=== PATIENT | male | born 1950 | race Caucasian/White ===

== ENCOUNTER 2022-11-27 09:02 | Outpatient (OUT) | payer OTHER, SELFPAY ==
[2022-11-27 10:35] LABS: Prostate Specific Antigen Scrn 1.44 ng/mL (<=4.00)
== END 2022-11-27 09:03 | disposition home or self-care (01) ==
LOC: LAB 09:07
PROVIDERS: PCP Internal Medicine; Visit Provider Internal Medicine
DX: Z12.5 Encounter for screening for malignant neoplasm of prostate (principal)
CPT/HCPCS: 36415; G0103

== ENCOUNTER 2022-11-27 09:10 | Outpatient (OUT) | payer OTHER, SELFPAY ==
[2022-11-27 09:34] LABS: Basophils Percent Auto 0.4 % (0.2-2.0); Eosinophils Absolute Auto 0.2 10^3/uL (0.0-0.7); Eosinophils Percent Auto 3.4 % (0.9-7.0); Hematocrit 40.8 % (42.0-54.0); Hemoglobin 13.8 g/dL (14.0-18.0); Immature Granulocytes Abs Auto 0.01 10^3/uL (0.00-0.03); Immature Granulocytes Pct Auto 0.2 % (0.0-0.5); Lymphocytes Absolute Auto 1.9 10^3/uL (1.2-3.8); Lymphocytes Percent Auto 33.2 % (20.5-60.0); Mean Corpuscular HGB Conc 33.8 g/dL (29.9-35.2); Mean Corpuscular Hemoglobin 30.9 pg (25.9-34.0); Mean Corpuscular Volume 91.5 fL (80.0-94.0); Mean Platelet Volume 10.3 fL (9.5-13.5); Monocytes Absolute Auto 0.6 10^3/uL (0.3-0.8); Monocytes Percent Auto 9.8 % (1.7-12.0); Platelet Count 150 10^3/uL (150-450); Red Blood Count 4.46 10^6/uL (4.70-6.10); Red Cell Distribution Width 12.4 % (11.0-15.0); White Blood Count 5.6 10^3/uL (4.0-11.0)
[2022-11-27 10:22] LABS: Alanine Aminotransferase 36 U/L (16-63); Anion Gap 12.1; Aspartate Amino Transferase 29 U/L (15-37); BUN Creatinine Ratio 20.2; Calcium 9.3 mg/dL (8.5-10.1); Chloride 106 mmol/L (98-107); Chol HDL Ratio 2.6; Cholesterol 119 mg/dL (<=200); Estimated GFR (African America >60 (>=60); Estimated GFR (Non-African Ame 55 (>=60); Glucose 111 mg/dL (74-106); HDL Cholesterol 46 mg/dL (40-60); LDL Cholesterol Calculated 58.6 mg/dL; Potassium 4.1 mmol/L (3.5-5.1); Sodium 142 mmol/L (136-145); Triglycerides 72 mg/dL (<=150); VLDL CHOLESTEROL 14.4 mg/dL
== END 2022-11-27 09:11 | disposition home or self-care (01) ==
LOC: LAB 09:11
PROVIDERS: PCP Internal Medicine; Visit Provider Internal Medicine Cardiovascular Disease
DX: Z12.5 Encounter for screening for malignant neoplasm of prostate (principal); E78.5 Hyperlipidemia, unspecified; Z98.61 Coronary angioplasty status; I25.10 Atherosclerotic heart disease of native coronary artery without angina pectoris; I42.9 Cardiomyopathy, unspecified
CPT/HCPCS: 36415; 80048; 80061; 84450; 84460; 85025; G0103

== ENCOUNTER 2023-12-01 09:06 | Outpatient (OUT) | payer OTHER, SELFPAY ==
[2023-12-01 09:32] LABS: Basophils Percent Auto 0.4 % (0.2-2.0); Eosinophils Absolute Auto 0.3 10^3/uL (0.0-0.7); Eosinophils Percent Auto 3.4 % (0.9-7.0); Hematocrit 41.6 % (42.0-54.0); Hemoglobin 14.3 g/dL (14.0-18.0); Immature Granulocytes Abs Auto 0.02 10^3/uL (0.00-0.03); Immature Granulocytes Pct Auto 0.2 % (0.0-0.5); Lymphocytes Percent Auto 24.8 % (20.5-60.0); Mean Corpuscular HGB Conc 34.4 g/dL (29.9-35.2); Mean Corpuscular Hemoglobin 31.9 pg (25.9-34.0); Mean Corpuscular Volume 92.9 fL (80.0-94.0); Mean Platelet Volume 10.5 fL (9.5-13.5); Monocytes Absolute Auto 0.7 10^3/uL (0.3-0.8); Monocytes Percent Auto 8.3 % (1.7-12.0); Neutrophils Absolute Auto 5.1 10^3/uL (1.4-6.5); Neutrophils Percent Auto 62.9 % (43.0-75.0); Platelet Count 150 10^3/uL (150-450); Red Blood Count 4.48 10^6/uL (4.70-6.10)
[2023-12-01 10:12] LABS: Alanine Aminotransferase 33 U/L (16-63); Albumin Globulin Ratio 1.4; Alkaline Phosphatase 81 U/L (46-116); Anion Gap 13.2; Aspartate Amino Transferase 27 U/L (15-37); BUN Creatinine Ratio 17.6; Bilirubin Total 1.1 mg/dL (0.2-1.0); Calcium 9.3 mg/dL (8.5-10.1); Carbon Dioxide 28.8 mmol/L (21.0-32.0); Chloride 105 mmol/L (98-107); Chol HDL Ratio 2.4; Cholesterol 119 mg/dL (<=200); Estimated GFR (African America >60 (>=60); Estimated GFR (Non-African Ame 57 (>=60); Globulin 2.9 g/dL; Glucose 112 mg/dL (74-106); HDL Cholesterol 49 mg/dL (40-60); LDL Cholesterol Calculated 56.2 mg/dL; Sodium 143 mmol/L (136-145); Total Protein 6.9 g/dL (6.4-8.2); Triglycerides 69 mg/dL (<=150); VLDL CHOLESTEROL 13.8 mg/dL
[2023-12-01 10:17] LABS: Prostate Specific Antigen Scrn 1.69 ng/mL (<=4.00)
== END 2023-12-01 09:07 | disposition home or self-care (01) ==
LOC: LAB 09:09
PROVIDERS: PCP Internal Medicine; Visit Provider Internal Medicine
DX: Z00.00 Encounter for general adult medical examination without abnormal findings (principal); I10 Essential (primary) hypertension; I25.10 Atherosclerotic heart disease of native coronary artery without angina pectoris; Z12.5 Encounter for screening for malignant neoplasm of prostate; E78.00 Pure hypercholesterolemia, unspecified
CPT/HCPCS: 36415; 80053; 80061; 85025; G0103

== ENCOUNTER 2024-12-01 09:03 | Outpatient (OUT) | payer OTHER, SELFPAY ==
--- OUTSIDE RECORDS SUMMARY | 2024-12-01 09:10 | XMS_ITS | Encounter Summary ---
Author Organization [facility] Address [address] [place] [address] Phone Care Team Providers Care Evaporator Operator Molasses Name Role Phone Kenny Fitzpatrick DO Primary Care Provider [phone] Kenny Fitzpatrick DO Primary Care Provider [phone] Encounter Details Date Type Department Care Team (Late st Contact Info) Description 04/10/2019 Orders Only [facility] [address] [place] [address] Conversion, Onbase Social History Tobacco Use Types Packs/Day Years Used Date Smoking Tobacco: Never Assessed Sex and Gender Information Value Date Recorded Sex Assigned at Not on file Legal Sex Male 9:57 AM EST Gender Identity Not on file Sexual Orientation Not on file documented as of this encounter Plan of Treatment Upcoming Encounters Date Type Department Care Team (Late st Contact Info) Description 11/01/2025 8:30 AM EDT Office Visit [facility] [address] [address] Lorenzo Monk MD 703 [facility] 2, [address] [place], [place] [id number] Scheduled Orders Name Type Priority Associated Diagnoses Orde r Schedule OUTSIDE LAB SCAN Lab Ordered: 04/10/2019 documented as of this encounter Visit Diagnoses Not on filedocumented in this encounter Care Teams Evaporator Operator Molasses Relationship Specialty Start Date End Date Kenny Fitzpatrick DO PCP - General 05/05/99 10/13/24 Kenny Fitzpatrick DO [facility] [place] [address] PCP - General Internal Medicine 10/14/24 documented as of this encounter
--- OUTSIDE RECORDS SUMMARY | 2024-12-01 09:10 | XMS_ITS | Clinical Summary ---
Author Organization [facility] Address [address] [place] [address] Phone Care Team Providers Care International Marketing Coordinator Name Role Phone Kenny Fitzpatrick DO Primary Care Provider Allergies No known active allergies Medications omega 3-zng-zso-fish oil (Fish OiL) 300-1,000 mg capsule,delayed release(DR/EC) Take 1 capsule by mouth once daily. Active multivit-min/ferrou s fumarate (MULTI VITAMIN ORAL) Take 1 tablet by mouth once daily. Active aspirin 81 mg EC tabletIndications:A therosclerotic heart disease of [place] coronary artery without angina pectoris Take 1 tablet (81 mg) by mouth once daily. as directed 90 tablet 3 4 Active losartan (Cozaar) 100 mg tabletIndications:A therosclerosis of coronary artery, unspecified vessel or lesion type, unspecified whether angina present, unspecified whether [place] or transplanted heart,Cardiomyopath y, unspecified type (Multi) Take 1 tablet (100 mg) by mouth once daily. 90 tablet 3 4 Active hydroCHLOROthiazide (HYDRODiuril) 25 mg tabletIndications:C ardiomyopathy, unspecified type (Multi),White coat syndrome with hypertension Take 1 tablet (25 mg) by mouth once daily. 90 tablet 3 4 Active carvedilol (Coreg) 12.5 mg tabletIndications:E ssential (primary) hypertension,Cardio myopathy, unspecified type (Multi) Take 1 tablet (12.5 mg) by mouth 2 times a day. 180 tablet 3 5 09/25/19 26 Active atorvastatin (Lipitor) 80 mg tabletIndications:H yperlipidemia, unspecified hyperlipidemia type Take 1 tablet (80 mg) by mouth once daily at bedtime. 90 tablet 3 5 09/25/19 Active amLODIPine (Norvasc) 2.5 mg tabletIndications:E ssential (primary) hypertension Take 1 tablet (2.5 mg) by mouth once daily. 90 tablet 3 5 09/25/19 Active nitroglycerin (Nitrostat) 0.4 mg SL tabletIndications:A therosclerosis of coronary artery, unspecified vessel or lesion type, unspecified whether angina present, unspecified whether [place] or transplanted heart Place 1 tablet (0.4 mg) under the tongue every 5 minutes if needed for chest pain ([facility] or call 911 after third dose.). 100 tablet 1 Active Active Problems Problem Noted Date Diagnosed Date Never smoked tobacco 10/28/2024 BMI 24.0-24.9, adult 10/29/2023 Atherosclerosis of coronary artery 07/14/2023 Cardiomyopathy 07/14/2023 Hyperlipidemia 07/14/2023 Status post coronary angioplasty 07/14/2023 White coat syndrome with hypertension 07/14/2023 Encounters Date Type Department Care Team Description 10/28/2024 8:40 AM EDT Office Visit [address] [address] Lorenzo Monk MD Atherosclerosis of coronary artery, unspecified vessel or lesion type, unspecified whether angina present, unspecified whether [place] or transplanted heart (Primary Dx); Status post coronary angioplasty; White coat syndrome with hypertension; Left ventricular systolic dysfunction; Mixed hyperlipidemia; BMI 24.0-24.9, adult; Never smoked tobacco 10/28/2024 Travel 09/24/[address] [address] Lorenzo Monk MD Essential (primary) hypertension; Hyperlipidemia, unspecified hyperlipidemia type; White coat syndrome with hypertension; Cardiomyopathy, unspecified type (Multi) from Last 3 Months Immunizations Immunization Administration Dates Next Due Flu vaccine, quadrivalent, h igh-dose, preservative free, age 65y+ (FLUZONE) 01/19/2022,01/20/2021 Flu vaccine, trivalent, pres ervative free, HIGH-DOSE, age 65y+ (Fluzone) 01/23/2018,01/01/2017,02/03/2016 Influenza, Seasonal, Quadriv alent, Adjuvanted 01/11/2023 Pneumococcal conjugate vacci ne, 13-valent (PREVNAR 13) 03/20/2016 Pneumococcal polysaccharide vaccine, 23-valent, age 2 years and older (PNEUMOVAX 23) 02/07/2017,02/07/2007 Zoster, live 02/02/2014 Family History Medical History Relation Name Comments Hypertension Brother No Known Problems Father No Known Problems Mother Relation Name Status Comments Brother Father Mother Social History Tobacco Use Types Packs/Day Years Used Date Smoking Tobacco: Never Smokeless Tobacco: Never Alcohol Use Standard Drinks/Week Comments Never 0 (1 standard drink = 0.6 oz pur e alcohol) Sex and Gender Information Value Date Recorded Sex Assigned at Not on file Legal Sex Male 9:57 AM EST Gender Identity Not on file Sexual Orientation Not on file Last Filed Vital Signs Vital Sign Reading Time Taken Comments Blood Pressure 148/86 10/28/2024 8:39 AM EDT Pulse 78 10/28/2024 8:39 AM EDT Temperature - - Respiratory Rate - - Oxygen Saturation - - Inhaled Oxygen Concentration - - Weight 73 kg (161 lb) 10/28/2024 8:39 AM EDT Height 172.7 cm (5' 8 ) 10/28/2024 8:39 AM EDT Body Mass Index 24.48 10/28/2024 8:39 AM EDT Plan of Treatment Upcoming Encounters Date Type Department Care Team (Late st Contact Info) Description 11/01/2025 8:30 AM EDT Office Visit [facility] [address] [address] Lorenzo Monk MD 703 [facility] 2, [facility] [address] [place] [address] Health Maintenance Due Date Last Done Comments CT Colonography 1950 Colonoscopy 1950 Colorectal Cancer Screening 1950 FIT-DNA (Cologuard) 1950 FIT 1950 Sigmoidoscopy 1950 Hepatitis C Screening 1968 RSV High Risk: (Elderly (60+) or Population) (1 - Risk 60-74 years 1-dose series) 2010 MMR Vaccines (1 of 1 - Standard series) 03/02/2014 Zoster Vaccines (2 of 3) 03/30/2014 02/02/2014 Yearly Adult Physical 11/29/2023 11/27/2022 COVID-19 Vaccine (2 - season) 2024 09/23/2020 Influenza Vaccine (#1) 2025 , 01/11/2023, 01/19/2022, Additional history exists Lipid Panel 10/11/2025 10/11/2020 DTaP/Tdap/Td Vaccines (2 - Tdap) 11/22/2030 11/22/2020 Pneumococcal Vaccine Completed 02/07/2017, 03/20/2016, 11/22/2015, Additional history exists HIB Vaccines Aged Out No longer eligi ble based on patient's age to complete this topic HPV Vaccines Aged Out No longer eligi ble based on patient's age to complete this topic Hepatitis A Vaccines Aged Out No long er eligible based on patient's age to complete this topic Hepatitis B Vaccines Aged Out No long er eligible based on patient's age to complete this topic IPV Vaccines Aged Out No longer eligi ble based on patient's age to complete this topic Meningococcal Vaccine Aged Out No nam magdalena eligible based on patient's age to complete this topic Rotavirus Vaccines Aged Out No longer eligible based on patient's age to complete this topic Procedures Procedure Name Priority Date/Time Associated Diagnosis Comments LIPID PANEL Routine 10/11/2020 8:43 AM EDT from Last 3 Months or Most Recently Relevant to Health Maintenance Results * Lipid Panel (10/11/2020 8:43 AM EDT) Cholesterol 149 0 - 199 mg/dL [facility] Comment: . AGE DESIRABLE BORDERLINE HIGH HIGH 0-19 Y 0 - 169 170 - 199 >/= 200 20-24 Y 0 - 189 190 - 224 >/= 225 >24 Y 0 - 199 200 - 239 >/= 240 All ranges are based on fasting samples. Specific therapeutic targets will vary based on patient-specific cardiac risk. . Pediatric guidelines reference:Pediatrics 2011, 128(S5). Adult guidelines reference: NCEP ATPIII Guidelines, NELLI 2001, 258:2486-97 . Venipuncture immediately after or during the administration of Metamizole may lead to falsely low results. Testing should be performed immediately prior to Metamizole dosing. HDL 43.0 mg/dL [facility] Comment: . AGE VERY LOW LOW NORMAL HIGH 0-19 Y < 35 < 40 40-45 ---- 20-24 Y ---- < 40 >45 ---- >24 Y ---- < 40 40-60 >60 . Cholesterol/HDL Ratio 3.5 [facility] Comment: REF VALUES DESIRABLE < 3.4 HIGH RISK > 5.0 LDL 85 0 - 99 mg/dL [facility] Comment: . NEAR BORD AGE DESIRABLE OPTIMAL HIGH HIGH VERY HIGH 0-19 Y 0 - 109 --- 110-129 >/= 130 ---- 20-24 Y 0 - 119 --- 120-159 >/= 160 ---- >24 Y 0 - 99 100-129 130-159 160-189 >/=190 . VLDL 21 0 - 40 mg/dL [facility] Triglycerides 103 0 - 149 mg/dL [facility] Comment: . AGE DESIRABLE BORDERLINE HIGH HIGH VERY HIGH 0 D-90 D 19 - 174 ---- ---- ---- 91 D- 9 Y 0 - 74 75 - 99 >/= 100 ---- 10-19 Y 0 - 89 90 - 129 >/= 130 ---- 20-24 Y 0 - 114 115 - 149 >/= 150 ---- >24 Y 0 - 149 150 - 199 200- 499 >/= 500 . Venipuncture immediately after or during the administration of Metamizole may lead to falsely low results. Testing should be performed immediately prior to Metamizole dosing. 10/11/2020 8:43 AM EDT 10/11/2020 8:02 PM EDT us Lorenzo Monk MD LAB BLOOD ORDERABLES Final R esult [facility] from Last 3 Months or Most Recently Relevant to Health Maintenance Insurance MEDICARE PART A HEALTH PLAN [place] [id number] MEDICARE PART A HEALTH PLAN Care Teams International Marketing Coordinator Relationship Specialty Start Date End Date Kenny Fitzpatrick DO [address] [place] [address] PCP - General Internal Medicine 10/14/24
--- OUTSIDE RECORDS SUMMARY | 2024-12-01 09:10 | XMS_ITS | Encounter Summary ---
Author Organization [facility] Address [address] [place] [address] Phone Care Team Providers Care Automotive Quality Manager Name Role Phone Kenny Fitzpatrick DO Primary Care Provider [phone] Kenny Fitzpatrick DO Primary Care Provider [phone] Encounter Details Date Type Department Care Team (Late st Contact Info) Description 01/11/2023 Scanned Document [facility] [address] [place] [address] Conversion, Onbase Social History Tobacco Use Types [...] Description 11/01/2025 8:30 AM EDT Office Visit [facility] [address] [address] Lorenzo Monk MD [address] [facility] 2, [address] [place], [place] [phone] documented as of this encounter Visit Diagnoses Not on filedocumented in this encounter Care Teams Automotive Quality Manager Relationship Specialty Start Date End Date Kenny Fitzpatrick DO PCP - General 05/05/99 10/13/24 [place] [address] PCP - General Internal Medicine 10/14/24 documented as of this encounter
--- OUTSIDE RECORDS SUMMARY | 2024-12-01 09:10 | XMS_ITS | Encounter Summary ---
Author Organization [facility] Address [address] [place] [address] Phone Care Team Providers Care Systems Design Engineer Name Role Phone Kenny Fitzpatrick DO Primary Care Provider [phone] Kenny Fitzpatrick DO Primary Care Provider [phone] Encounter Details Date Type Department Care Team (Late st Contact Info) Description 11/22/2020 Orders Only [facility] [address] [place] [address] Conversion, Onbase Social History Tobacco Use Types [...] Description 11/01/2025 8:30 AM EDT Office Visit [facility] [address] [address] Lorenzo Monk MD 703 [facility] 2, [address] [place], [place] [id number] Scheduled Orders Name Type Priority Associated Diagnoses Orde r Schedule OUTSIDE LAB SCAN Lab Ordered: 11/22/2020 documented as of this encounter Visit Diagnoses Not on filedocumented in this encounter Care Teams Systems Design Engineer Relationship Specialty Start Date End Date Kenny Fitzpatrick DO PCP - General 05/05/99 10/13/24 Kenny Fitzpatrick DO [address] [place] [place] [address] PCP - General Internal Medicine 10/14/24 documented as of this encounter
--- OUTSIDE RECORDS SUMMARY | 2024-12-01 09:10 | XMS_ITS | Encounter Summary ---
Author Organization [facility] Address [address] [place] [address] Phone Care Team Providers Care Superannuation Funds Manager Name Role Phone Kenny Fitzpatrick DO Primary Care Provider [phone] Kenny Fitzpatrick DO Primary Care Provider [phone] Encounter Details Date Type Department Care Team (Late st Contact Info) Description 12/10/2019 Orders Only [facility] [address] [place] [address] Conversion, Onbase Social History Tobacco Use Types [...] Description 11/01/2025 8:30 AM EDT Office Visit [facility] [address] [address] Lorenzo Monk MD 703 [facility] 2, [address] [place], [place] [phone] Scheduled Orders Name Type Priority Associated Diagnoses Orde r Schedule OUTSIDE LAB SCAN Lab Ordered: 12/10/2019 documented as of this encounter Visit Diagnoses Not on filedocumented in this encounter Care Teams Superannuation Funds Manager Relationship Specialty Start Date End Date Kenny Fitzpatrick DO PCP - General 05/05/99 10/13/24 Kenny Fitzpatrick DO [facility] [place] [address] PCP - General Internal Medicine 10/14/24 documented as of this encounter
--- OUTSIDE RECORDS SUMMARY | 2024-12-01 09:10 | XMS_ITS | Encounter Summary ---
Author Organization [facility] Address [address] [place] [address] Phone Care Team Providers Care Sports Analyst Name Role Phone Kenny Fitzpatrick DO Primary Care Provider [phone] Kenny Fitzpatrick DO Primary Care Provider [phone] Encounter Details Date Type Department Care Team (Late st Contact Info) Description 11/28/2021 Orders Only [facility] [address] [place] [address] Conversion, Onbase Social History Tobacco Use Types [...] Description 11/01/2025 8:30 AM EDT Office Visit [facility] [address] [address] Lorenzo Monk MD 703 [facility] 2, [address] [place], [place] [phone] Scheduled Orders Name Type Priority Associated Diagnoses Orde r Schedule OUTSIDE LAB SCAN Lab Ordered: 11/28/2021 documented as of this encounter Visit Diagnoses Not on filedocumented in this encounter Care Teams Sports Analyst Relationship Specialty Start Date End Date Kenny Fitzpatrick DO PCP - General 05/05/99 10/13/24 Kenny Fitzpatrick DO [address] [place] [address] PCP - General Internal Medicine 10/14/24 documented as of this encounter
--- OUTSIDE RECORDS SUMMARY | 2024-12-01 09:29 | XMS_ITS | CCD ---
Author Organization [facility] Care Team Providers Care 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 Name Role Phone Unavailable Unavailable ALEIDA, DR DELEON Attending Unavailable ALEIDA, DR DELEON Consulting Unavailable ALEIDA, DR DELEON Primary Care Unavailable ALEIDA, DR DELEON Admitting Unavailable MONK, DR DAGOBERTO Gazra Consulting Unavailable LACHO, DR DAGOBERTO Garza Admitting Unavailable ALEIDA, DR DELEON Primary Care Unavailable LACHO, DR DAGOBERTO Garza Attending Unavailable Kenny Fitzpatrick Unavailable NONE, XXXX Primary Care Unavailable Juan FONTENOT Attending Unavailable Kenny Fitzpatrick Unavailable Dr. Kenny Fitzpatrick Kanaranzi Primary Care Unavai sara Monk, Dr. Dagoberto Rivera Referring Rut vailable Lacho, Dr. Dagoberto Rivera Attending Rut vailable Kenny Fitzpatrick DO Primary Care Provider Kenny Fitpzatrick DO Primary Care Provider DAGOBERTO MONK Attending Unavailable DAGOBERTO MONK Referring Unavailable KENNY FITZPATRICK Primary Care Unavailable Kenny Fitzpatrick DO Primary Care Provider [phone] Kenny Fitzpatrick DO Attending Provider Medications Current Medications Medication Drug Class(es) Dates Sig (Normalized) Sig (Original) amLODIPine 2.5 mg oral tablet (9 sources) Dihydropyridine Calcium Channel Jacques Start: 11-26-2021 End: 09-24-2025 take 1 tablet by mouth once daily Amlodipine 2.5 mg tablet Active 2.5 MG PO Daily December 01, 2023 12:00am Complies with drug therapy aspirin 81 mg delayed release oral tablet (10 sources) Platelet Aggregation Inhibitor, Nonsteroidal Anti-inflammatory Drug Start: 10-16-2023 End: 10-29-2023 take 1 tablet by mouth once daily Aspirin 81 mg tablet,delayed release (DR/EC) Active 81 MG PO Daily December 01, 2023 12:00am Complies with drug therapy Start: 10-05-2021 take 1 tablet by juvenal th once daily Aspirin Low Dose 81 MG Oral Tablet Delayed Release TAKE 1 TABLET BY MOUTH EVERY DAY DIRECTED Quantity: 90 Refills: 3 Ordered: 23-Oct-2022 Dagoberto Monk MD Start : 05-Oct-2021 Active ASPIRIN ADULT LOW DOSE 81 MG ORAL TABLET DELAYED RELEASE (1 source) Start: 11-23-2021 ASPIRIN ADULT LOW DOSE 81 MG ORAL TABLET DELAYED RELEASE ASPIRIN ADULT LOW DOSE 81 MG ORAL TABLET DELAYED RELEASE( ) Active -Hx Entry for 0 Nov, Not-Taking atorvastatin 80 mg oral tablet (7 sources) HMG-CoA Reductase Inhibitor Start: 12-01-2023 End: 09-24-2025 take 1 tablet by mouth once daily at bedtime atorvastatin (Lipitor) 80 mg tablet Indications: Hyperlipidemia, unspecified hyperlipidemia type Take 1 tablet (80 mg) by mouth once daily at bedtime. 90 tablet 3 09/24/2024 09/24/2025 Active Start: 10-16-2023 take 1 tablet by juvenal th once daily at bedtime atorvastatin (Lipitor) 80 mg tablet Indications: Hyperlipidemia, unspecified hyperlipidemia type TAKE 1 TABLET BY MOUTH EVERYDAY AT BEDTIME 90 tablet 3 10/16/2023 Active Start: 11-22-2020 take 1 tablet by juvenal th once daily in the evening Atorvastatin Calcium 80 MG 1 tablet Orally daily in evening Nov, Active carvedilol 12.5 mg oral tablet (9 sources) alpha-Adrenergic Jacques, beta-Adrenergic Jacques Start: 12-01-2023 End: 09-24-2025 take 1 tablet by mouth twice daily carvedilol (Coreg) 12.5 mg tablet Indications: Essential (primary) hypertension , Cardiomyopathy, unspecified type (Multi) Take 1 tablet (12.5 mg) by mouth 2 times a day. 180 tablet 3 09/24/2024 09/24/2025 Active Start: 10-06-2023 take 1 tablet by juvenal th twice daily carvedilol (Coreg) 12.5 mg tablet Indications: Essential (primary) hypertension TAKE 1 TABLET BY MOUTH TWICE A DAY 180 tablet 3 10/06/2023 Active Start: 10-22-2021 CARVEDILOL 12. 5 MG ORAL TABLET CARVEDILOL 12.5 MG ORAL TABLET( ) Active -Hx Entry for 0 Nov, Not-Taking hydroCHLOROthiazide 25 mg oral tablet (8 sources) Thiazide Diuretic Start: 11-23-2021 End: 10-28-2024 take 1 tablet by mouth once daily Hydrochlorothiazide 25 mg tablet Active 25 MG PO Daily December 01, 2023 12:00am Complies with drug therapy losartan potassium 50 mg oral tablet (9 sources) Angiotensin 2 Receptor Jacques Start: 12-01-2023 take 1 tablet by mouth once daily Losartan 50 mg tablet Active 50 MG PO Daily December 01, 2023 12:00am Complies with drug therapy Start: 10-29-2023 End: 10-28-2024 take 1 tablet by mouth once daily losartan (Cozaar) 100 mg tablet Indications: Atherosclerosis of coronary artery, unspecified vessel or lesion type, unspecified whether angina present, unspecified whether jackson or transplanted heart , Cardiomyopathy, unspecified type (Multi) Take 1 tablet (100 mg) by mouth once daily. 90 tablet 3 10/29/2023 Active Start: 11-23-2021 LOSARTAN POTAS SIUM 50 MG ORAL TABLET LOSARTAN POTASSIUM 50 MG ORAL TABLET( ) Active -Hx Entry for 0 Nov, Not-Taking multivit-min/ferrous fumarate (MULTI VITAMIN ORAL) (2 sources) take 1 tablet by mouth once daily multivit-min/ferrous fumarate (MULTI VITAMIN ORAL) Take 1 tablet by mouth once daily. Active nitroglycerin 0.4 mg sublingual tablet (10 sources) Nitrate Vasodilator Start: 2024 nitroglycerin (Nitrostat) 0.4 mg SL tablet Indications: Atherosclerosis of coronary artery, unspecified vessel or lesion type, unspecified whether angina present, unspecified whether jackson or transplanted heart Place 1 tablet (0.4 mg) under the tongue every 5 minutes if needed for chest pain ([facility] or call 911 after third dose.). 100 tablet 1 10/28/2024 Active Start: 08-13-2021 End: 10-28-2024 nitroglycerin (Nitrostat) 0. 4 mg SL tablet Indications: Atherosclerosis of coronary artery, unspecified vessel or lesion type, unspecified whether angina present, unspecified whether jackson or transplanted heart Place 1 tablet (0.4 mg) under the tongue every 5 minutes if needed for chest pain (Report to [facility] ER or call 911 after third dose.). 25 tablet 11 10/29/2023 10/28/2024 Discontinued (Reorder) omega 4-sfb-wfj-fish oil (Fi sh OiL) 300-1,000 mg capsule,delayed release(DR/EC) (2 sources) take 300-1000 mg by mouth once daily omega 9-zkw-dyw-fish oil (Fish OiL) 300-1,000 mg capsule,delayed release(DR/EC) Take 1 capsule by mouth once daily. Active Completed/Discontinued Medications Medication Drug Class(es) Dates Sig (Normalized) Sig (Original) citric acid 75 mg/ml / magnesium oxide 21.9 mg/ml / picosulfate sodium 0.0625 mg/ml oral solution (1 source) Calculi Dissolution Agent, Anti-coagulant Start: 01-07-2019 take 160 mL by mouth in the evening, then take 160 mL by mouth twice daily in the evening Clenpiq 10-3.5-12 MG-GM -GM/160ML 160 ML AT 3:00 PM AND 160 ML AT 9:00 PM Orally TWICE A DAY for 1 days Jan, Not-Taking Fish Oil 1000 MG Oral Capsule Delayed Release (2 sources) take 1 capsule by mouth once daily Fish Oil 1000 MG Oral Capsule Delayed Release TAKE 1 CAPSULE Daily Quantity: 0 Refills: 0 Ordered: 24-Oct-2021 DO Active Multi Vitamin Oral Tablet (2 sources) take 1 tablet by mouth once daily Multi Vitamin Oral Tablet TAKE 1 TABLET DAILY. Quantity: 0 Refills: 0 Ordered: 24-Oct-2021 DO Active Problems Active Problems Problem Classification Problem Date Documented Date Episodic/Chronic Acute bronchitis (2 sources) Acute bronchitis; Translations: [Acute bronchitis, unspecified] Onset: 03-09-2014 Episodic Coronary atherosclerosis and other heart disease (20 sources) Coronary atherosclerosis; Translations: [Coronary atherosclerosis of unspecified type of vessel, jackson or graft] Onset: 11-26-2021 Chronic Comment on above: PCI/stent - 2004 Coronary atherosclerosis and other heart disease (11 sources) Past history of procedure; Translations: [Percutaneous transluminal coronary angioplasty status] Onset: 07-14-2023 10-29-2023 Episodic Disorders of lipid metabolism (18 sources) Hyperlipidemia; Translations: [Other and unspecified hyperlipidemia] Onset: 11-18-2017 Chronic Essential hypertension (18 sources) Essential hypertension; Translations: [Unspecified essential hypertension] Onset: 07-14-2023 Chronic Genitourinary symptoms and ill-defined conditions (1 source) Nocturia Episodic Hyperplasia of prostate (6 sources) Nocturia due to benign prostatic hypertrophy; Translations: [Benign prostatic hyperplasia with lower urinary tract symptoms] Chronic Hypertension with complications and secondary hypertension (1 source) Hypertensive heart disease without heart failure; Translations: [HTN HEART DISEASE W/O HEART FAIL] Onset: 11-29-2021 Chronic Immunizations and screening for infectious disease (1 source) Vaccination given; Translations: [Encounter for immunization] Episodic Other and ill-defined heart disease (1 source) Left ventricular systolic dysfunction; Translations: [Other ill-defined heart diseases] 10-28-2024 Chronic Other injuries and conditions due to external causes (1 source) History of fall; Translations: [History of falling] Episodic Other screening for suspected conditions (not mental disorders or infectious disease) (13 sources) Patient encounter status; Translations: [Screening for malignant neoplasms of prostate] Onset: 11-26-2021 Resolved: 10-23-2022 Episodic Bree-; endo-; and myocarditis; cardiomyopathy (except that caused by tuberculosis or sexually transmitted disease) (10 sources) Cardiomyopathy; Translations: [Other primary cardiomyopathies] Onset: 11-29-2021 10-29-2023 Chronic Residual codes; unclassified (6 sources) Body mass index 20-24 - normal; Translations: [Body Mass Index between 19-24, adult] Onset: 10-29-2023 10-28-2024 Episodic Residual codes; unclassified (2 sources) Never smoked tobacco; Translations: [Other specified health status] Onset: 10-28-2024 10-28-2024 Episodic Residual codes; unclassified (2 sources) Body mass index (BMI) 24.0-24.9, adult; Translations: [Body mass index (BMI) 24.0-24.9, adult] Onset: 10-28-2024 Episodic Residual codes; unclassified (2 sources) Other specified health status; Translations: [Other specified health status] Onset: 10-28-2024 Episodic Past or Other Problems Problem Classification Problem Date Documented Da te Episodic/Chronic Other nutritional; endocrine; and metabolic disorders (3 sources) Overweight in adulthood with body mass index of 25 or more but less than 30; Translations: [Overweight] Onset: 10-29-2023 10-29-2023 Episodic Other nutritional; endocrine; and metabolic disorders (1 source) Overweight; Translations: [Overweight] Onset: 11-23-2021 Episodic Other upper respiratory infections (1 source) Acute maxillary sinusitis; Translations: [Acute maxillary sinusitis, unspecified] Onset: 03-09-2014 Episodic Unclassified (2 sources) Never smoked tobacco; Translations: [Never a smoker] Unclassified (2 sources) Onset: 10-29-2023 10-29-2023 Results Test Name Value Interpretation Reference Range Facility Office Visit (Cardiology)on 10-23-2022 Follow-up visit Diagnoses/Problems Assessed Cardiomyopathy (425.4) (I42.9) Status post coronary angioplasty (V45.82) (Z98.61) Atherosclerosis of coronary artery (414.00) (I25.10) White coat syndrome with hypertension (401.9) (I10) Hyperlipidemia (272.4) (E78.5) Never a smoker Overweight with body mass index (BMI) of 25 to 25.9 in adult (278.02,V85.21) (E66.3,Z68.25) Orders Atherosclerosis of coronary artery Renew: Aspirin Low Dose 81 MG Oral Tablet Delayed Release; TAKE 1 TABLET BY MOUTH EVERY DAY DIRECTED Atherosclerosis of coronary artery, Cardiomyopathy, Hyperlipidemia, Status post coronary angioplasty ALT - Alanine Aminotransferase, Serum; Status:Active - Retrospective Authorization; Requested for:23Oct2022; AST; Status:Active - Retrospective Authorization; Requested for:23Oct2022; Basic Metabolic Panel; Status:Active - Retrospective Authorization; Requested for:23Oct2022; Complete Blood Count; Status:Active - Retrospective Authorization; Requested for:23Oct2022; Lipid Panel; Status:Active - Retrospective Authorization; Requested for:23Oct2022; Atherosclerosis of coronary artery, Cardiomyopathy, White coat syndrome with hypertension Renew: Losartan Potassium 100 MG Oral Tablet; TAKE 1 TABLET DAILY Atherosclerosis of coronary artery, Hyperlipidemia Renew: Atorvastatin Calcium 80 MG Oral Tablet; TAKE 1 TABLET AT BEDTIME Atherosclerosis of coronary artery, White coat syndrome with hypertension Renew: hydroCHLOROthiazide 25 MG Oral Tablet; TAKE 1 TABLET DAILY Overweight with body mass index (BMI) of 25 to 25.9 in adult Healthy Weight Tips; Status:Complete - Retrospective Authorization; Done: 23Oct2022 Some eating tips that can help you lose weight.; Status:Complete - Retrospective Authorization; Done: 23Oct2022 SocHx: Never a smoker Tobacco Use Screening; Status:Complete; Done: 23Oct2022 Patient Instructions Please bring all medicines, vitamins, and herbal supplements with you when you come to the office. Prescriptions will not be filled unless you are compliant with your follow up appointments or have a follow up appointment scheduled as per instruction of your physician. Refills should be requested at the time of your visit. labs to be completed in the next couple weeks Follow up in 1 year. Chief Complaint STEPHANIE AUSTIN is being seen for an annual follow-up of. Patient is in the office for follow-up for the problems noted below. It has been 18 years since his angioplasty and has had no events since. His risk factor for CAD have been under control. He does have whitecoat hypertension which has been documented over the years. He checks his blood pressure readings on a weekly basis and his systolic pressure never exceeded 140 mmHg, his annual blood work is due next month and the last years readings were on target. His weight is on target his review of system was done in normal physical examination was entirely normal. He was never smoker. His job is physically demanding at [employer] and he has no plans for [facility] soon. ASSESSMENT AND PLAN: 1. Single-vessel coronary artery disease, status post angioplasty of the LAD in 2004. There has been no recurrent disease since his last stress test we have was in 2005 with no recurrent disease at that time. He is not interested in doing a stress test at this time. 2. Hyperlipidemia, currently on maximal dose atorvastatin. Lipid profile is ordered. No side effects, historically his LDL readings have been on target 3. White-coat hypertension has been documented. No change in medical therapy was felt to be necessary at this time. Patient metabolic profile is ordered 4. Prior myocardial infarction leading to anterior hypokinesis and scarring EF 50%. Currently medical therapy in regard to LV dysfunction will be left unchanged. He remains asymptomatic. Patient will follow-up with me in 1 year Dagoberto Monk MD, [facility] Surgical History Problems History of Cardiac catheterization History of Complete colonoscopy Managed By: Dameon Fowler DO (Unknown) Past Medical History Problems History of Screening PSA (prostate specific antigen) (V76.44) (Z12.5) Resolved Date: 23 Oct 2022 Current Meds Medication NameInstruction amLODIPine Besylate 2.5 MG Oral TabletTake 1 tablet daily Aspirin Low Dose 81 MG Oral Tablet Delayed ReleaseTAKE 1 TABLET BY MOUTH EVERY DAY DIRECTED Atorvastatin Calcium 80 MG Oral TabletTAKE 1 TABLET AT BEDTIME. Carvedilol 12.5 MG Oral TabletTake 1 tablet twice a day Fish Oil 1000 MG Oral Capsule Delayed ReleaseTAKE 1 CAPSULE Daily hydroCHLOROthiazide 25 MG Oral TabletTAKE 1 TABLET DAILY. Losartan Potassium 100 MG Oral TabletTAKE 1 TABLET DAILY. Multi Vitamin Oral TabletTAKE 1 TABLET DAILY. Nitroglycerin 0.4 MG Sublingual Tablet SublingualPLACE 1 TAB UNDER TONGUE EVERY 5 MINS, UP TO 3 DOSES NEEDED FOR CHEST PAIN CALL 911 IF NO RELIEF Allergies Medication No Known Drug Allergies Recorded By: Fabiana Hernandes; (more content not included)... Normal [employer] Tobacco Screening.on 023 Adult depression screening assessment No [facility] [employer] DO Work Phone: Fall risk assessment a) No falls within the last year [facility] [employer] DO Work Phone: Tobacco use status [facility] b) No [facility] [employer] 250 DO Work Phone: CBC AUTO DIFFon 11-26-2021 BASO # 0.0 103/ul Normal 0.0-0.1 [facility] Comment on above: Performed By: #### C BC #### [facility] [address] [address] [address] Unruly Singh Basophils/100 WBC (Bld) 0.3 % Normal 0.2-2.0 [facility] Comment on above: Performed By: #### C BC #### [facility] [address] [address] [address] Unruly Singh EO # 0.2 103/ul Normal 0.0-0.7 [facility] Comment on above: Performed By: #### C BC #### [facility] [address] [address] [address] Unruly Singh Eosinophils/100 WBC (Bld) 3.1 % Normal 0.9-7.0 [facility] Comment on above: Performed By: #### C BC #### [facility] [address] [place] [address] Dr. Unruly Singh Erythrocyte distribution width (RBC) [Ratio] 12.7 % Normal 11.0-15.0 [facility] Comment on above: Performed By: #### C BC #### [facility] [address] [place] [address] Dr. Unruly Singh Hematocrit (Bld) [Volume fraction] 43.2 % Normal 42.0-54.0 [facility] Comment on above: Performed By: #### C BC #### [facility] [address] [place] [address] Dr. Unruly Singh Hemoglobin (Bld) [Mass/Vol] 14.6 g/dL Normal 14.0-18.0 [facility] Comment on above: Performed By: #### C BC #### [facility] [address] [place] [address] Dr. Unruly Singh IG # 0.02 10e3/ul Normal 0.00-0.03 [facility] Comment on above: Performed By: #### C BC #### [facility] [address] [place] [address] Dr. Unruly Singh IG % 0.3 % Normal 0.0-0.5 [facility] Comment on above: Performed By: #### C BC #### [facility] [address] [place] [address] Dr. Unruly Singh LYMPH # 1.9 103/ul Normal 1.2-3.8 [facility] Comment on above: Performed By: #### C BC #### [facility] [address] [place] [address] Dr. Unruly Singh Lymphocytes/100 WBC (Bld) 27.4 % Normal 20.5-60.0 [facility] Comment on above: Performed By: #### C BC #### [facility] [address] [place] [address] Dr. Unruly Singh MANUAL DIFF REQ NO Normal [facility] Comment on above: Performed By: #### C BC #### [facility] [address] [place] [address] Dr. Unruly Singh MCH (RBC) [Entitic mass] 30.9 pg Normal 25.9-34.0 [facility] Comment on above: Performed By: #### C BC #### [facility] [address] [place] [address] Dr. Unruly Singh MCHC (RBC) [Mass/Vol] 33.8 g/dL Normal 29.9-35.2 [facility] Comment on above: Performed By: #### C BC #### [facility] [address] [place] [address] Dr. Unruly Singh MCV (RBC) [Entitic vol] 91.3 fL Normal 80.0-94.0 [facility] Comment on above: Performed By: #### C BC #### [facility] [address] [place] [address] Dr. Unruly Singh MONO # 0.5 103/ul Normal 0.3-0.8 [facility] Comment on above: Performed By: #### C BC #### [facility] [address] [place] [address] Dr. Unruly Singh Monocytes/100 WBC (Bld) 7.7 % Normal 1.7-12.0 [facility] Comment on above: Performed By: #### C BC #### [facility] [address] [place] [address] Dr. Unruly Singh NEUT # 4.3 103/ul Normal 1.4-6.5 [facility] Comment on above: Performed By: #### C BC #### [facility] [address] [place] [address] Dr. Unruly Singh Neutrophils/100 WBC (Bld) 61.2 % Normal 43.0-75.0 [facility] Comment on above: Performed By: #### C BC #### [facility] [address] [place] [address] Dr. Unruly Singh Platelet mean volume (Bld) [Entitic vol] 10.2 fL Normal 9.5-13.5 [facility] Comment on above: Performed By: #### C BC #### [facility] [address] [address] [address] Unruly Singh PLT 169 103/ul Normal 150-450 [facility] Comment on above: Performed By: #### C BC #### [facility] [address] [place] [address] Dr. Unruly Singh RBC 4.73 106/ul Normal 4.70-6.10 [facility] Comment on above: Performed By: #### C BC #### [facility] [address] [place] [address] Dr. Unruly Singh WBC 7.0 103/ul Normal 4.0-11.0 [facility] Comment on above: Performed By: #### C BC #### [facility] [address] [place] [address] Dr. Unruly Singh LIPID PROFILEon 11-26-2021 CHOL-HDL RATIO NORM SEE BELOW Normal [facility] Comment on above: Result Comment: 3.3 - 4.4 LOW RISK 4.4 - 7.1 AVERAGE RISK 7.1 - 11.0 MODERATE RISK >11.0 HIGH RISK Performed By: #### A ST, LIPID, BMP, ALT #### [facility] [address] [place] [address] Dr. Unruly Singh Cholesterol [Mass/Vol] 126 mg/dL Normal <=200 [facility] Comment on above: Performed By: #### A ST, LIPID, BMP, ALT #### [facility] [address] [place] [address] Dr. Unruly Singh Cholesterol in HDL [Mass/Vol] 47 mg/dL Normal 40-60 [facility] Comment on above: Performed By: #### A ST, LIPID, BMP, ALT #### [facility] [address] [place] [address] Dr. Unruly Singh Cholesterol in LDL [Mass/Vol] 62.8 mg/dL Normal [facility] Comment on above: Performed By: #### A ST, LIPID, BMP, ALT #### [facility] [address] [place] [address] Dr. Unruly Singh Cholesterol.total /Cholesterol in HDL [Mass ratio] 2.7 {ratio} Normal [facility] Comment on above: Performed By: #### A ST, LIPID, BMP, ALT #### [facility] [address] [address] [address] Unruly Singh HDL NORMAL > or = 60 mg/dl - LO W CARDIOVASCULAR RISK <40 mg/dl - HIGH CARDIOVASCULAR RISK Normal [facility] Comment on above: Performed By: #### A ST, LIPID, BMP, ALT #### [facility] [address] [address] [address] Unruly Singh LDL CALC NORMAL SEE BELOW Normal [facility] Comment on above: Result Comment: <100 mg/dl OPTIMAL 100 - 129 mg/dl NEAR OR ABOVE OPTIMAL 130 - 159 mg/dl BORDERLINE HIGH 160 - 189 mg/dl HIGH >190 mg/dl VERY HIGH Performed By: #### A ST, LIPID, BMP, ALT #### [facility] [address] [address] [address] Unruly Singh Triglyceride [Mass/Vol] 81 mg/dL Normal <=150 [facility] Comment on above: Performed By: #### A ST, LIPID, BMP, ALT #### [facility] [address] [address] [address] Unruly Singh VLDL CALC 16.2 mg/dL Normal [facility] Comment on above: Performed By: #### A ST, LIPID, BMP, ALT #### [facility] [address] [address] [address] Unruly Singh PROF CHEM 8 (BAS METB)on Anion gap [Moles/Vol] 10.8 mmol/L Normal [facility] Comment on above: Performed By: #### A ST, LIPID, BMP, ALT #### [facility] [address] [address] [address] Unruly Singh Calcium [Mass/Vol] 9.4 mg/dL Normal 8.5-10.1 [facility] Comment on above: Performed By: #### A ST, LIPID, BMP, ALT #### [facility] [address] [address] [address] Unruly Singh Chloride [Moles/Vol] 106 mmol/L Normal 98-107 [facility] Comment on above: Performed By: #### A ST, LIPID, BMP, ALT #### [facility] [address] [address] [address] Unruly Singh CO2 [Moles/Vol] 30.7 mmol/L Normal 21.0-32.0 [facility] Comment on above: Performed By: #### A ST, LIPID, BMP, ALT #### [facility] [address] [address] [address] Unruly Singh Creatinine [Mass/Vol] 1.26 mg/dL Normal 0.70-1.30 [facility] Comment on above: Performed By: #### A ST, LIPID, BMP, ALT #### [facility] [address] [place] [address] Dr. Unruly Singh EGFR-AF LATVIAN >60 Normal >=60 [facility] Comment on above: Performed By: #### A ST, LIPID, BMP, ALT #### [facility] [address] [place] [address] Dr. Unruly Singh EGFR-NON AF LATVIAN 56 mL/min/1.73m2 Critically low >=60 [facility] Comment on above: Performed By: #### A ST, LIPID, BMP, ALT #### [facility] [address] [place] [address] Dr. Unruly Singh Glucose [Mass/Vol] 113 mg/dL Critically high 74-106 [facility] Comment on above: Performed By: #### A ST, LIPID, BMP, ALT #### [facility] [address] [place] [address] Dr. Unruly Singh Potassium [Moles/Vol] 4.5 mmol/L Normal 3.5-5.1 [facility] Comment on above: Performed By: #### A ST, LIPID, BMP, ALT #### [facility] [address] [address] [address] Unruly Singh Sodium [Moles/Vol] 143 mmol/L Normal 136-145 [facility] Comment on above: Performed By: #### A ST, LIPID, BMP, ALT #### [facility] [address] [place], [place] [address] Dr. Unruly Singh Urea nitrogen [Mass/Vol] 24.0 mg/dL Critically high 7.0-18.0 [facility] Comment on above: Performed By: #### A ST, LIPID, BMP, ALT #### [facility] [address] [place], [place] [address] Dr. Unruly Singh Urea nitrogen/Creatini ne [Mass ratio] 19.0 mg/mg Normal [facility] Comment on above: Performed By: #### A ST, LIPID, BMP, ALT #### [facility] [address] [address] [address] Unruly Verde 11-26-2021 AST [Catalytic activity/Vol] 27 U/L Normal 15-37 [facility] Comment on above: Performed By: #### A ST, LIPID, BMP, ALT #### [facility] [address] [address] [address] Unruly Barron 11-26-2021 ALT [Catalytic activity/Vol] 33 U/L Normal 16-63 [facility] Comment on above: Performed By: #### A ST, LIPID, BMP, ALT #### [facility] [address] [address] [address] Unruly Singh Office Visit (Cardiology)on 10-24-2021 Follow-up visit Diagnoses/Problems Assessed Atherosclerosis of coronary artery (414.00) (I25.10) Status post coronary angioplasty (V45.82) (Z98.61) Cardiomyopathy (425.4) (I42.9) Essential hypertension (401.9) (I10) Hyperlipidemia (272.4) (E78.5) Never a smoker Body mass index (BMI) of 24.0 to 24.9 in adult (V85.1) (Z68.24) Orders Atherosclerosis of coronary artery Renew: Aspirin Low Dose 81 MG Oral Tablet Delayed Release; TAKE 1 TABLET BY MOUTH EVERY DAY DIRECTED Continue with our present treatment plan.; Status:Complete - Retrospective Authorization; Done: 24Oct2021 Atherosclerosis of coronary artery, Cardiomyopathy, Essential hypertension Renew: Losartan Potassium 100 MG Oral Tablet; TAKE 1 TABLET DAILY Basic Metabolic Panel; Status:Active - Retrospective Authorization; Requested for:24Oct2021; Complete Blood Count; Status:Active - Retrospective Authorization; Requested for:24Oct2021; Atherosclerosis of coronary artery, Essential hypertension Renew: hydroCHLOROthiazide 25 MG Oral Tablet; TAKE 1 TABLET DAILY Atherosclerosis of coronary artery, Hyperlipidemia Renew: Atorvastatin Calcium 80 MG Oral Tablet; TAKE 1 TABLET AT BEDTIME ALT - Alanine Aminotransferase, Serum; Status:Active - Retrospective Authorization; Requested for:24Oct2021; AST; Status:Active - Retrospective Authorization; Requested for:24Oct2021; Lipid Panel; Status:Active - Retrospective Authorization; Requested for:24Oct2021; SocHx: Never a smoker Tobacco Use Screening; Status:Complete; Done: 24Oct2021 Tobacco Use Screening; Status:Complete; Done: 24Oct2021 Patient Instructions By signing my name below, Brenda Olmstead Lpn, Scribe, attest that this documentation has been prepared under the direction and in the presence of Dr. Dagoberto Monk MD. All medical record entries made by the Scribe were at my direction and personally dictated by me. I have reviewed the chart and agree that the record accurately reflects my personal performance of the history, physical exam, discussion and plan. Please bring all medicines, vitamins, and herbal supplements with you when you come to the office. Prescriptions will not be filled unless you are compliant with your follow up appointments or have a follow up appointment scheduled as per instruction of your physician. Refills should be requested at the time of your visit. Follow up in 1 year. Same meds. Chief Complaint STEPHANIE AUSTIN is being seen for an annual follow-up of. 71-year-old white male who is in the office for annual follow-up for CAD and previous PCI in 2004. He works with [employer] in [place] and has active lifestyle and has had no events since last visit a year ago. He has no angina orthopnea PND or palpitations. His blood pressure at home is normal it was measured initially in the office was elevated after settling down came back to normal. Examination otherwise was normal. Medication were reviewed at the present time no further cardiac investigations are needed but his labs are due and were ordered. ASSESSMENT AND PLAN: 1. Single-vessel coronary artery disease, status post angioplasty of the LAD in 2004. There has been no recurrent disease since his last stress test we have was in 2005 with no recurrent disease at that time. He is not interested in doing a stress test at this time. 2. Hyperlipidemia, currently on maximal dose atorvastatin. Lipid profile is ordered. No side effects 3. White-coat hypertension has been documented. No change in medical therapy was felt to be necessary at this time. Patient metabolic profile is ordered 4. Prior myocardial infarction leading to anterior hypokinesis and scarring EF 50%. Currently medical therapy in regard to LV dysfunction will be left unchanged. He remains asymptomatic. Patient will follow-up with me in 1 year Dagoberto Monk MD, [facility] Surgical History Problems History of Cardiac catheterization History of Complete colonoscopy Managed By: Dameon Fowler DO (Unknown) Current Meds Medication NameInstruction amLODIPine Besylate 2.5 MG Oral TabletTake 1 tablet daily Aspirin Low Dose 81 MG Oral Tablet Delayed ReleaseTAKE 1 TABLET BY MOUTH EVERY DAY DIRECTED Atorvastatin Calcium 80 MG Oral TabletTAKE 1 TABLET AT BEDTIME. Carvedilol 12.5 MG Oral Tablettake 1 tablet by mouth twice a day Fish Oil 1000 MG Oral Capsule Delayed ReleaseTAKE 1 CAPSULE Daily hydroCHLOROthiazide 25 MG Oral TabletTAKE 1 TABLET DAILY. Losartan Potassium 100 MG Oral TabletTAKE 1 TABLET DAILY. Multi Vitamin Oral TabletTAKE 1 TABLET DAILY. Nitroglycerin 0.4 MG [address]ual Tablet SublingualPL[address] 1 TAB UNDER TONGUE EVERY 5MIN FOR UP TO 3DOSES NEEDED FOR CHEST PAIN, CALL 911 IF NO RELIEF Allergies Medication No Known Drug Allergies Recorded By: Fabiana Hernandes; 09/05/2021 1:45:03 PM Social History Problems Caffeine use (V49.89) (Z78.9) soda occasionally Never a smoker No alcohol use No illicit drug use Review of Systems Constitution (more content not included)... Normal [facility] Vital Signs Date Time Vital Sign Value Performing Clinician Facility 12-01-2024 08:38-0400 Body height 172.72 cm [employer] Work Phone: [facility] 12-01-2024 08:38-0400 Body mass index (BMI) [Ratio] 23.9 kg/m2 [employer] Phone: [facility] 12-01-2024 08:38-0400 Body weight 71.38 kg [employer] Phone: [facility] 12-01-2024 08:38-0400 Diastolic blood pressure 70 mm[Hg] Kenny Ball DO Work Phone: [facility] 12-01-2024 08:38-0400 Heart rate 69 /min Kenny Ball DO Work Phone: [facility] 12-01-2024 08:38-0400 Respiratory rate 12 /min Kenny Ball DO Work Phone: [facility] 12-01-2024 08:38-0400 Systolic blood pressure 110 mm[Hg] Kenny Ball DO Work Phone: [facility] 10-28-2024 08:39-0400 Body height 172.7 cm Dagoberto Monk MD Work Phone: [facility] 10-28-2024 08:39-0400 Body mass index (BMI) [Ratio] 24.48 kg/m2 Dagoberto Monk MD Work Phone: [facility] 10-28-2024 08:39-0400 Body weight 73.03 kg Dagoberto Monk MD Work Phone: [facility] 10-28-2024 08:39-0400 Diastolic blood pressure 86 mm[Hg] Dagoberto Monk MD Work Phone: [facility] 10-28-2024 08:39-0400 Heart rate 78 /min Dagoberto Monk MD Work Phone: [facility] 10-28-2024 08:39-0400 Systolic blood pressure 148 mm[Hg] Dagoberto Monk MD Work Phone: [facility] 12-01-2023 08:24-0400 Body height 172.72 cm [facility] 12-01-2023 08:24-0400 Body mass index (BMI) [Ratio] 24.6 kg/m2 [facility] 12-01-2023 08:24-0400 Body weight 73.59 kg [facility] 12-01-2023 08:24-0400 Diastolic blood pressure 82 mm[Hg] [facility] 12-01-2023 08:24-0400 Heart rate 72 /min [facility] 12-01-2023 08:24-0400 Respiratory rate 12 /min [facility] 12-01-2023 08:24-0400 Systolic blood pressure 153 mm[Hg] [facility] 10-29-2023 08:12-0400 Body height 172.7 cm Dagoberto Monk MD Work Phone: [facility] 10-29-2023 08:12-0400 Body mass index (BMI) [Ratio] 25.24 kg/m2 Dagoberto Monk MD Work Phone: [facility] 10-29-2023 08:12-0400 Body weight 75.3 kg Dagoberto Monk MD Work Phone: [facility] 10-29-2023 08:12-0400 Diastolic blood pressure 86 mm[Hg] Dagoberto Monk MD Work Phone: [facility] 10-29-2023 08:12-0400 Heart rate 74 /min Dagoberto Monk MD Work Phone: [facility] 10-29-2023 08:12-0400 Systolic blood pressure 154 mm[Hg] Dagoberto Monk MD Work Phone: [facility] 11-27-2022 08:30-0400 Body height 170.18 cm Kenny Ball Other [employer] [facility] [employer] [facility] Other 11-27-2022 08:30-0400 Body mass index (BMI) [Ratio] 25.31 kg/m2 Kenny Ball Other [employer] [facility] Other 11-27-2022 08:30-0400 Body weight 73.3 kg Kenny Ball Other [facility] [employer] Other 11-27-2022 08:30-0400 Diastolic blood pressure 70 mm[Hg] Kenny Ball Other [facility] [employer] [facility] Other 11-27-2022 08:30-0400 Respiratory rate 12 /min Kenny Ball Other [facility] [employer] [facility] Other 11-27-2022 08:30-0400 Systolic blood pressure 110 mm[Hg] Kenny Ball Other [facility] [employer] [facility] Other 10-23-2022 08:07-0400 Body height 172.72 cm Kenny E Ball Work Phone: [facility] [facility] DO Work Phone: 10-23-2022 08:07-0400 Body mass index (BMI) [Ratio] 25.09 kg/m2 Kenny E Ball Work Phone: [facility] [address] DO Work Phone: 10-23-2022 08:07-0400 Body surface area Derived from formula 1.88 m2 Kenny E Ball Work Phone: [facility] 250 DO Work Phone: 10-23-2022 08:07-0400 Body weight 74.84 kg Kenny E Ball Work Phone: [facility] [facility] DO Work Phone: 10-23-2022 08:07-0400 Diastolic blood pressure 90 mm[Hg] Kenny E Ball Work Phone: [facility] 250 DO Work Phone: 10-23-2022 08:07-0400 Heart rate 72 /min Kenny E Ball Work Phone: [facility] 250 DO Work Phone: 10-23-2022 08:07-0400 Systolic blood pressure 170 mm[Hg] Kenny E Ball Work Phone: [facility] 250 DO Work Phone: 11-26-2021 00:00-0400 62.8 1 Kenny Fitzpatrick Work Phone: [facility] 250 DO Work Phone: Comment on above: FSLDL Encounters Encounter Date Encounter Type Care Provider Facility Start: 12-01-2024 End: 12-01-2024 ambulatory Kenny Fitzpatrick DO Work Phone: [facility] Work Phone: Start: 12-01-2024 End: 12-01-2024 Patient encounter procedure Kenny Fitzpatrick DO -[facility] Work Phone: Start: 12-01-2024 End: 12-01-2024 Patient encounter status Kenny Fitzpatrick DO [facility] Start: 10-28-2024 End: 10-28-2024 Office outpatient visit 25 minutes Dagoberto Monk MD Work Phone: [facility] Comment on above: Atherosclerosis of c oronary artery, unspecified vessel or lesion type, unspecified whether angina present, unspecified whether jackson or transplanted heart (Primary Dx); Status post coronary angioplasty; White coat syndrome with hypertension; Left ventricular systolic dysfunction; Mixed hyperlipidemia; BMI 24.0-24.9, adult; Never smoked tobacco Start: 10-28-2024 End: 10-28-2024 ambulatory [facility] Start: 12-01-2023 End: 12-01-2023 ambulatory [facility] Work Phone: Start: 12-01-2023 End: 12-01-2023 Encounter for general adult medical examination without abnormal findings [facility] Start: 12-01-2023 End: 12-01-2023 Patient encounter procedure [facility] Work Phone: Start: 10-29-2023 End: 10-29-2023 Office outpatient visit 25 minutes Dagoberto Monk MD Work Phone: [facility] Comment on above: Atherosclerosis of c oronary artery, unspecified vessel or lesion type, unspecified whether angina present, unspecified whether jackson or transplanted heart; Cardiomyopathy, unspecified type (Multi); White coat syndrome with hypertension; Hyperlipidemia, unspecified hyperlipidemia type; Status post coronary angioplasty; BMI 25.0-25.9,adult; Atherosclerotic heart disease of jackson coronary artery without angina pectoris Start: 11-27-2022 End: 11-27-2022 ambulatory Kenny Fitzpatrick Other [facility] Other Start: 11-27-2022 Encounter for dwaine l adult medical examination without abnormal findings Kenny Fitzpatrick [facility] Start: 11-27-2022 Periodic preventive med est patient 65yrs& older Kenny Fitzpatrick [facility] Start: 10-23-2022 Office outpatient vi sit 25 minutes Kenny Fitzpatrick Work Phone: [facility] 250 DO Work Phone: Start: 10-23-[address] Kenny Fitzpatrick Facility: Start: 12-14-2021 Rx Renewal Kenyn Philomena Ricky jude Work Phone: [facility] 250 DO Work Phone: Start: 11-26-2021 End: 11-27-[address] KENNY FITZPATRICK Facility: Start: 11-23-2021 Adult health examination Julio Fitzpatrick Other [facility] Other Start: 10-24-2021 FUV, Provider: Dagoberto Monk, Status: Pen, Time: 8:30 AM Dagoberto Monk MD Work Phone: [facility] 250 DO Work Phone: Start: 10-22-2021 Rx Renewal Dagoberto Monk MD Work Phone: [facility] 250 DO Work Phone: Start: 10-05-2021 Rx Renewal Dagoberto Monk MD Work Phone: [facility] 250 DO Work Phone: Start: 08-13-2021 Rx Renewal Dagoberto Monk MD Work Phone: [facility] 250 DO Work Phone: Start: 06-13-2017 End: 06-14-2017 ambulatory XXXX NONE Facility:[id number] Procedures Date Procedure Procedure Detail Performing Clinician Start: 11-26-[address] CEDRIC STARKEY ALEIDA Comment on above: Performed By: #### P [facility] #### [facility] [address] [place] [address] Dr. Unruly Singh Start: 11-22-2020 End: 11-24-2021 Depression screening Kenny Fitzpatrick Other Start: 10-11-2020 Lipid 1996 panel - S cesar or Plasma Dagoberto Monk MD Work Phone: Start: 01-03-2019 Total colonoscopy Julio Fitzpatrick Work Phone: Start: 11-18-2017 End: 11-22-2019 General examination of patient Kenny Fitzpatrick Other Start: 11-18-2017 Screening for malign ant neoplasm of colon Kenny Fitzpatrick Other Cardiac catheterization Benj john Fitzpatrick Work Phone: Screening for malign ant neoplasm of prostate Kenny Fitzpatrick Other Total colonoscopy Dagoberto muniz MD Work Phone: Plan of Treatment Date Care Activity Detail Author Start: 11-22-2030 DTaP/Tdap/Td Vaccines (2 - Tdap) DTaP/Tdap/Td Vaccines (2 - Tdap) [facility] Start: 11-01-2025 End: 11-01-2025 Patient encounter procedure 11/01/2025 8:30 AM EDT Office Visit [facility] [address] [place] [address] Dagoberto Monk MD [address] [place] [address] [facility] Start: 06-09-2026 Lipid panel Lipid Panel [facility] Start: 10-28-2024 End: 10-28-2024 Aspartate aminotransferase [Enzymatic activity/volume] in Serum or Plasma by With P-5'-P Aspartate Aminotransferase Lab Routine Atherosclerosis of coronary artery, unspecified vessel or lesion type, unspecified whether angina present, unspecified whether jackson or transplanted heart Expected: 10/28/2024 (Approximate), Expires: 10/28/2024 [facility] Work Phone: Comment on above: Expected: 10/28/2024 (Approximate), Expi res: 10/28/2024 Start: 10-28-2024 End: 10-28-2024 Basic metabolic 2000 panel - Serum or Plasma Basic Metabolic Panel Lab Routine Atherosclerosis of coronary artery, unspecified vessel or lesion type, unspecified whether angina present, unspecified whether jackson or transplanted heart Cardiomyopathy, unspecified type (Multi) Expected: 10/28/2024 (Approximate), Expires: 10/28/2024 [facility] Work Phone: Comment on above: Expected: 10/28/2024 (Approximate), Expi res: 10/28/2024 Start: 10-28-2024 End: 10-28-2024 CBC panel - Blood by Automated count CBC Lab Routine Atherosclerosis of coronary artery, unspecified vessel or lesion type, unspecified whether angina present, unspecified whether jackson or transplanted heart Expected: 10/28/2024 (Approximate), Expires: 10/28/2024 [facility] Work Phone: Comment on above: Expected: 10/28/2024 (Approximate), Expi res: 10/28/2024 Start: 10-28-2024 End: 10-28-2024 Lipid 1996 panel - Serum or Plasma Lipid Panel Lab Routine Atherosclerosis of coronary artery, unspecified vessel or lesion type, unspecified whether angina present, unspecified whether jackson or transplanted heart Expected: 10/28/2024 (Approximate), Expires: 10/28/2024 [facility] Work Phone: Comment on above: Expected: 10/28/2024 (Approximate), Expi res: 10/28/2024 Start: 10-28-2024 End: 10-28-2024 Patient encounter procedure 10/28/2024 8:40 AM EDT Office Visit [facility] [address] [place] [address] Dagoberto Monk MD [address] [place] [address] [facility] Start: 01-04-2024 COVID-19 Vaccine ( season) COVID-19 Vaccine ( season) [facility] Start: 11-29-2023 Yearly Adult Physical Yearly Adult Physical [facility] Start: 10-29-2023 End: 10-28-2024 Alanine aminotransferase [Enzymatic activity/volume] in Serum or Plasma by With P-5'-P Alanine Aminotransferase Lab Routine Atherosclerosis of coronary artery, unspecified vessel or lesion type, unspecified whether angina present, unspecified whether jackson or transplanted heart Expected: 10/29/2023 (Approximate), Expires: 10/28/2024 [facility] Service Area Work Phone: Comment on above: Expected: 10/29/2023 (Approximate), Expi res: 10/28/2024 Start: 10-29-2023 FUV, Provider: Dagoberto Monk, Status: Pen, Time: 8:30 AM FUV, Provider: Dagoberto Monk, Status: Pen, Time: 8:30 AM [facility] 250 DO Work Phone: Start: 01-03-2023 COVID-19 Vaccine ( season) COVID-19 Vaccine () [facility] Start: 10-24-2022 FUV, Provider: Dagoberto Monk, Status: Pen, Time: 8:30 AM FUV, Provider: Dagoberto Monk, Status: Pen, Time: 8:30 AM [facility] 250 DO Work Phone: Start: 10-24-2021 FUV, Provider: Dagoberto Monk, Status: Pen, Time: 8:30 AM FUV, Provider: Dagoberto Monk, Status: Pen, Time: 8:30 [facility] Work Phone: Start: 03-30-2014 Zoster Vaccines (2 of 3) Zoster Vaccines (2 of 3) [facility] Start: 2010 RSV High Risk: (Elderly (60+) or Population) (1 - Risk 60-74 years 1-dose series) RSV High Risk: (Elderly (60+) or Population) (1 - Risk 60-74 years 1-dose series) [facility] Start: 2010 RSV patients and/or patients aged 60+ years (1 - 1-dose 60+ series) RSV patients and/or patients aged 60+ years (1 - 1-dose 60+ series) [facility] Start: 1968 Hepatitis C screening Hepatitis C Screening [facility] Start: 1950 Screening for malignant neoplasm of colon [facility] Start: 1950 Skin Cancer Screening Skin Cancer Screening [facility] Start: 1950 Yearly Adult Physical Yearly Adult Physical [facility] Comprehensive metabo lic 1999 panel - Serum or Plasma [facility] Comprehensive metabo lic 1999 panel - Serum or Plasma [facility] Immunizations Immunization Date Immunization Notes Care Provider Fa cili 01-11-2023 Influenza, Seasonal, Quadrivalent, Adjuvanted Dagoberto Monk MD Work Phone: [facility] Work Phone: 01-19-2022 Fluzone High-Dose Quadrivalent 0.7 ML Intramuscular Suspension Prefilled Syringe Kenny Fitzpatrick [facility] Work Phone: 01-19-2022 influenza virus vaccine, unspecified formulation [facility] 01-19-2022 influenza, high dose seasonal, preservative-free Kenny Fitzpatrick Other [employer] Other 04-07-2021 Leosphere COVID-19 Vacc 30 MCG/0.3ML Intramuscular Suspension Kenny Fitzpatrick Work Phone: [place] [address] DO Work Phone: 01-20-2021 Fluzone High-Dose Quadrivalent 0.7 ML Intramuscular Suspension Prefilled Syringe Kenny Fitzpatrick Work Phone: [place] [address] DO Work Phone: 11-22-2020 diphtheria, tetanus toxoids and acellular pertussis vaccine, unspecified formulation Kenny Fitzpatrick Other [facility] 09-23-2020 Brendan COVID-19 Vaccine 0.5 ML Intramuscular Suspension Dagoberto Monk MD Work Phone: [facility] 02-03-2020 influenza virus vaccine, unspecified formulation Dagoberto Monk MD Work Phone: [place] [address] DO Work Phone: 12-24-2019 influenza virus vaccine, split virus (incl. purified surface antigen) Kenny Fitzpatrick Other [facility] Other 12-24-2019 influenza virus vaccine, unspecified formulation [facility] 01-20-2019 Seasonal trivalent influenza vaccine, adjuvanted, preservative free Kenny Fitzpatrick Work Phone: [place] [address] DO Work Phone: 01-03-2019 influenza virus vaccine, unspecified formulation Dagoberto Monk MD Work Phone: [place] [address] DO Work Phone: 01-23-2018 influenza, high dose seasonal, preservative-free Kenny Fitzpatrick Work Phone: [place] [address] DO Work Phone: 01-03-2018 influenza virus vaccine, unspecified formulation Dagoberto Monk MD Work Phone: [place] [address] DO Work Phone: 02-07-2017 pneumococcal polysaccharide vaccine, 23 valent Kenny Fitzpatrick Work Phone: [facility] 01-03-2017 influenza virus vaccine, unspecified formulation Dagoberto Monk MD Work Phone: [place] [address] DO Work Phone: 01-01-2017 influenza, high dose seasonal, preservative-free Dagoberto Monk MD Work Phone: [facility] Work Phone: 03-20-2016 pneumococcal conjuga te vaccine, 13 valent Dagoberto Monk MD Work Phone: [place] [address] DO Work Phone: 02-14-2016 influenza virus vaccine, split virus (incl. purified surface antigen) Kenny Fitzpatrick Other [facility] Other 02-14-2016 influenza virus vaccine, unspecified formulation [facility] 02-03-2016 influenza virus vaccine, unspecified formulation Dagoberto Monk MD Work Phone: [place] [address] DO Work Phone: 02-03-2016 influenza, high dose seasonal, preservative-free Dagoberto Monk MD Work Phone: [facility] Work Phone: 11-22-2015 pneumococcal conjuga te vaccine, 13 valent Kenny Fitzpatrick Other [facility] 01-03-2015 influenza virus vaccine, unspecified formulation Dagoberto Monk MD Work Phone: [place] [address] DO Work Phone: 02-02-2014 influenza virus vaccine, unspecified formulation Dagoberto Monk MD Work Phone: [place] [address] DO Work Phone: 02-02-2014 zoster vaccine, live Dagoberto Monk MD Work Phone: [facility] 250 DO Work Phone: 02-08-2010 influenza, seasonal, injectable Kenny E Ball Work Phone: [facility] 250 DO Work Phone: 02-07-2007 pneumococcal polysaccharide vaccine, 23 valent Dagoberto Monk MD Work Phone: [facility] 250 DO Work Phone: influenza virus vaccine, unspecified formulation Dagoberto Monk MD Work Phone: [place] [address] DO Work Phone: Comment on above: Feb [id number] Payers Date Payer Category Payer Managed Care (Private) [facility] [id number] 2019 Private Health Insurance [facility] [employer] [id number] 2019-Present [address] [place] [address] [id number] 2017 Self-pay 1959 Private Health Insurance [facility] [id number] 1950 Unknown [id number] 1950 Unknown [id number] 1950 Unknown [id number] 1950 Unknown [id number] 1950 Unknown [id number] Medicare [id number] Private Health Insurance [facility] [id number] Unknown Social History Date Type Detail Facility Start: 10-29-2023 Caffeine use [facility] DO Work Phone: Comment on above: soda occasionally; Start: 10-29-2023 Sex Assigned At N [facility] Other Start: 10-29-2023 End: 12-01-2023 Tobacco smoking status NHIS Never smoked tobacco (finding) [facility] Start: 1950 Sex Assigned At Male F [facility] Start: 10-29-2023 Tobacco use and exposure Smokeless tobacco non-user [facility] Work Phone: Start: 10-29-2023 End: 10-28-2024 Alcoholic beverage intake Lifetime non-drinker (finding) [facility] Work Phone: Start: 1950 Sex assigned at Not on file [facility] Work Phone: Start: 10-19-2023 End: 10-29-2023 Exposure to SARS-CoV-2 (event) Not sure [facility] Sex Male (finding) [facility] Clinical Notes 11-27-2022 to 10-28-2024 Dagoberto Monk MD - 10/28/2024 8:40 AM EDTPatient InstructionsDagoberto Monk MD - 10/29/2023 8:30 AM EDTPatient Instructions Note Date & Type Note Facility 10-28-2024 History of Present illness Narrative HPI Patient is in the office for annual follow-up for CAD and previous angioplasty involving the LAD 20 years ago. He has essential hypertension on multiple medications which has been controlled at home, he has hyperlipidemia on statin therapy under excellent control based on testing he has annually. He continue to work with the [employer] and his work is physically demanding but he has been able to complete his work without any problems. There has been no reports of angina pectoris, palpitations, orthopnea PND or dyspnea on exertion. His weight is ideal with a BMI of 24.48 kg/m . He brought with him his lab data from last November which I reviewed with him and they look excellent. His physical examination is always noted to have hypertension our office but his home blood pressure readings have been completely normal. He clearly has an element of whitecoat hypertension. He follows low-salt diet and maintains very active lifestyle with no sleep apnea and no alcohol use. His examination was entirely normal. ASSESSMENT AND PLAN: 1. Single-vessel coronary artery disease, status post angioplasty of the LAD in 2004. There has been no recurrent disease, his last stress test we have was in 2005. Presently there is no indication to repeat the testing in the absence of symptoms uncontrolled risk factors. Sublingual nitroglycerin prescription was provided. His present medical therapy for chronic ischemic heart disease will be maintained with no interruption 2. Hyperlipidemia, currently on maximal dose atorvastatin. Annual lipid profile have demonstrated all his LDL cholesterol in the therapeutic range and he has had no side effect of medications. He follows low-fat diet, maintain ideal body weight and has very active lifestyle. Encouragement provided to maintain the same pattern of living. 3. White-coat hypertension has been documented. No change in medical therapy was felt to be necessary at this time. Renal function is normal 4. Prior myocardial infarction leading to anterior hypokinesis and scarring EF 50%. Currently medical therapy in regard to LV dysfunction will be left unchanged. He remains asymptomatic. ROS All review of system essentially normal Vitals: 10/28/24 0839 BP: 148/86 BP Location: Left arm Patient Position: Sitting Pulse: 78 Weight: 73 kg (161 lb) Height: 1.727 m (5' 8 ) Objective Physical Exam Constitutional: Appearance: Normal appearance. HENT: Nose: Nose normal. Neck: Vascular: No carotid bruit. Cardiovascular: Rate and Rhythm: Normal rate. Pulses: Normal pulses. Heart sounds: Normal heart sounds. Pulmonary: Effort: Pulmonary effort is normal. Abdominal: General: Bowel sounds are normal. Palpations: Abdomen is soft. Musculoskeletal: General: Normal range of motion. Cervical back: Normal range of motion. Right lower leg: No edema. Left lower leg: No edema. Skin: General: Skin is warm and dry. Neurological: General: No focal deficit present. Mental Status: He is alert. Psychiatric: Mood and Affect: Mood normal. Behavior: Behavior normal. Thought Content: Thought content normal. Judgment: Judgment normal. Allergies Patient has no known allergies. Current Medications Current Outpatient Medications Medication Instructions amLODIPine (NORVASC) 2.5 mg, oral, Daily aspirin 81 mg, oral, Daily, as directed atorvastatin (LIPITOR) 80 mg, oral, Nightly carvedilol (COREG) 12.5 mg, oral, 2 times daily hydroCHLOROthiazide (HYDRODIURIL) 25 mg, oral, Daily losartan (COZAAR) 100 mg, oral, Daily multivit-min/ferrous fumarate (MULTI VITAMIN ORAL) 1 tablet, Daily nitroglycerin (NITROSTAT) 0.4 mg, sublingual, Every 5 min PRN omega 9-rdg-kgu-fish oil (Fish OiL) 300-1,000 mg capsule,delayed release(DR/EC) 1 capsule, Daily Assessment/Plan 1. Atherosclerosis of coronary artery, unspecified vessel or lesion type, unspecified whether angina present, unspecified whether jackson or transplanted heart Follow Up In Cardiology Follow Up In Cardiology nitroglycerin (Nitrostat) 0.4 mg SL tablet 2. Status post coronary angioplasty 3. White coat syndrome with hypertension 4. Mixed hyperlipidemia 5. BMI 24.0-24.9, adult 6. Never smoked tobacco Scribe Attestation By signing my name below, I, Je Larkin LPN attest that this documentation has been prepared under the direction and in the presence of Dagoberto Monk MD. Provider Attestation - Scribe documentation All medical record entries made by the Scribe were at my direction and personally dictated by me. I have reviewed the chart and agree that the record accurately reflects my personal performance of the history, physical exam, discussion and plan. documented in this encounter [facility] Work Phone: 10-28-2024 Instructions Des Saab MA - 10/28/2024 8:40 AM EDT Please bring all medicines, vitamins, and herbal supplements with you when you come to the office. Prescriptions will not be filled unless you are compliant with your follow up appointments or have a follow up appointment scheduled as per instruction of your physician. Refills should be requested at the time of your visit. documented in this encounter [facility] Work Phone: 10-29-2023 History of Present illness Narrative Subjective Stephanie Austin is a 73 y.o. male Chief Complaint Annual Exam HPI Patient is in the office for annual follow-up for coronary artery disease, hypertension and hyperlipidemia. He has not had any events since he was last seen in the office last year. He works at [employer] and his job is physically demanding without any problems for him. We have not received his blood work from the last 2 years. We will request that again from [facility]. His medication reviewed, they have been very effective and well-tolerated. We renewed nitroglycerin sublingual. His pressure is always elevated in the office and he is known to have whitecoat hypertension. His blood pressure otherwise in other places have always been normal. Therefore I did not want to make any adjustment of his medications. He is not in need for any cardiac investigations at this time. ASSESSMENT AND PLAN: 1. Single-vessel coronary artery disease, status post angioplasty of the LAD in 2004. There has been no recurrent disease since his last stress test we have was in 2005 with no recurrent disease at that time. He is not interested in doing a stress test at this time. 2. Hyperlipidemia, currently on maximal dose atorvastatin. Lipid profile is ordered. No side effects, historically his LDL readings have been on target 3. White-coat hypertension has been documented. No change in medical therapy was felt to be necessary at this time. Patient metabolic profile is ordered 4. Prior myocardial infarction leading to anterior hypokinesis and scarring EF 50%. Currently medical therapy in regard to LV dysfunction will be left unchanged. He remains asymptomatic. Patient will follow-up with me in 1 year Dagoberto Monk MD, [facility] Review of Systems All other systems reviewed and are negative. Vitals: 10/29/23 0812 BP: 154/86 BP Location: Left arm Patient Position: Sitting Pulse: 74 Weight: 75.3 kg (166 lb) Height: 1.727 m (5' 8 ) Objective Physical Exam Constitutional: Appearance: Normal appearance. HENT: Nose: Nose normal. Neck: Vascular: No carotid bruit. Cardiovascular: Rate and Rhythm: Normal rate. Pulses: Normal pulses. Heart sounds: Normal heart sounds. Pulmonary: Effort: Pulmonary effort is normal. Abdominal: General: Bowel sounds are normal. Palpations: Abdomen is soft. Musculoskeletal: General: Normal range of motion. Cervical back: Normal range of motion. Right lower leg: No edema. Left lower leg: No edema. Skin: General: Skin is warm and dry. Neurological: General: No focal deficit present. Mental Status: He is alert. Psychiatric: Mood and Affect: Mood normal. Behavior: Behavior normal. Thought Content: Thought content normal. Judgment: Judgment normal. Allergies Patient has no known allergies. Current Medications Current Outpatient Medications: atorvastatin (Lipitor) 80 mg tablet, TAKE 1 TABLET BY MOUTH EVERYDAY AT BEDTIME, Disp: 90 tablet, Rfl: 3 carvedilol (Coreg) 12.5 mg tablet, TAKE 1 TABLET BY MOUTH TWICE A DAY, Disp: 180 tablet, Rfl: 3 multivit-min/ferrous fumarate (MULTI VITAMIN ORAL), Take 1 tablet by mouth once daily., Disp: , Rfl: omega 1-btq-xrv-fish oil (Fish OiL) 300-1,000 mg capsule,delayed release(DR/EC), Take 1 capsule by mouth once daily., Disp: , Rfl: amLODIPine (Norvasc) 2.5 mg tablet, Take 1 tablet (2.5 mg) by mouth once daily., Disp: 90 tablet, Rfl: 3 aspirin 81 mg EC tablet, Take 1 tablet (81 mg) by mouth once daily. as directed, Disp: 90 tablet, Rfl: 3 hydroCHLOROthiazide (HYDRODiuril) 25 mg tablet, Take 1 tablet (25 mg) by mouth once daily., Disp: 90 tablet, Rfl: 3 losartan (Cozaar) 100 mg tablet, Take 1 tablet (100 mg) by mouth once daily., Disp: 90 tablet, Rfl: 3 nitroglycerin (Nitrostat) 0.4 mg SL tablet, Place 1 tablet (0.4 mg) under the tongue every 5 minutes if needed for chest pain ([facility] or call 911 after third dose.)., Disp: 25 tablet, Rfl: 11 Assessment/Plan 1. Atherosclerosis of coronary artery, unspecified vessel or lesion type, unspecified whether angina present, unspecified whether jackson or transplanted heart Follow Up In Cardiology nitroglycerin (Nitrostat) 0.4 mg SL tablet losartan (Cozaar) 100 mg tablet 2. Cardiomyopathy, unspecified type (Multi) losartan (Cozaar) 100 mg tablet hydroCHLOROthiazide (HYDRODiuril) 25 mg tablet 3. White coat syndrome with hypertension hydroCHLOROthiazide (HYDRODiuril) 25 mg tablet amLODIPine (Norvasc) 2.5 mg tablet 4. Hyperlipidemia, unspecified hyperlipidemia type 5. Status post coronary angioplasty 6. BMI 25.0-25.9,adult 7. Atherosclerotic heart disease of jackson coronary artery without angina pectoris aspirin 81 mg EC tablet Scribe Attestation By signing my name below, IBrenda LPN, Scribe attest that this documentation has been prepared under the direction and in the presence of Dagoberto Monk MD. Provider Attestation - Scribe documentation All medical record entries made by the Scribe were at my direction and personally dictated by me. I have reviewed the chart and agree that the record accurately reflects my personal performance of the history, physical exam, discussion and plan. documented in this encounter [facility] Work Phone: 10-29-2023 Audrey Kessler LPN - 10/29/2023 8:30 AM EDT Please bring all medicines, vitamins, and herbal supplements with you when you come to the office. Prescriptions will not be filled unless you are compliant with your follow up appointments or have a follow up appointment scheduled as per instruction of your physician. Refills should be requested at the time of your visit. BMI was above normal measurement. Current weight: 75.3 kg (166 lb) Weight change since last visit (-) denotes wt loss 1 lbs Weight loss needed to achieve BMI 25: 1.9 Lbs Weight loss needed to achieve BMI 30: -30.9 Lbs Provided instructions on dietary changes. Follow up one year Same medications. documented in this encounter [facility] Work Phone: 11-27-2022 Evaluation note Encounter Date Diagnosis Assessment Notes Nov, ASHD (arteriosclerotic heart disease) (ICD-10 - I25.10) This patient is stable without activity related CP, dyspnea or lightheadedness. They are instructed to continue exercise and AHA diet plan. Nov, Wellness examination (ICD-10 - Z00.00) Healthy diet and exercise. Reviewed age-appropriate preventive testing recommended. Nov, Primary hypertension (ICD-10 - I10) This patient is instructed to consume a healthy, low-fat, low-salt diet. They are also encouraged to continue exercise to achieve/maintain a normal BMI. Nov, Familial hypercholesterolemia (ICD-10 - E78.01) Diet and exercise w/ continued statin therapy. Recent increase w/ statin, recheck LDL, liver enzymes due per cardiology Instructed on diet and exercise with continued statin therapy.Discusse d the beneficial effects of lowering cholesterol in reducing the risk for cerebrovascular and cardiovascular disease. Nov, Nocturia (ICD-10 - R35.1) Nov, Benign prostatic hyperplasia with lower urinary tract symptoms (ICD-10 - N40.1) Symptoms tolerable, yearly HERNESTO and PSA Nov, Screening PSA (prostate specific antigen) (ICD-10 - Z12.5) Nov, Other Personalized health advice was given to the beneficiary including a written plan for screenings discussed and provided. Advanced care planning reviewed and/or information given as requested. Additional counseling was provided here today in regards to, [ ]. The above visit was performed by [ ], under direct supervision of [ ]. Document reviewed and amended by provider signed below. [employer] Other Evaluation note* Diagnosis Onset Date Resolution Status ASHD (arteriosclerotic heart disease) acute Benign prostatic hyperplasia with lower urinary tract symptoms acute Hypercholesterolemia acute Hypertension acute Screening PSA (prostate specific antigen) noneactive Wellness examination noneact rashida [facility] Work Phone: Evaluation note* Diagnosis Atherosclerosis of coronary artery, unspecified vessel or lesion type, unspecified whether angina present, unspecified whether jackson or transplanted heart Cardiomyopathy, unspecified type (Multi) White coat syndrome with hypertension Hyperlipidemia, unspecified hyperlipidemia type Status post coronary angioplasty Postsurgical percutaneous transluminal coronary angioplasty status BMI 25.0-25.9,adult documented in this encounter [facility] Work Phone: Evaluation note* Diagnosis Atherosclerosis of coronary artery, unspecified vessel or lesion type, unspecified whether angina present, unspecified whether jackson or transplanted heart- Primary Status post coronary angioplasty Postsurgical percutaneous transluminal coronary angioplasty status White coat syndrome with hypertension Left ventricular systolic dysfunction Mixed hyperlipidemia BMI 24.0-24.9, adult Never smoked tobacco documented in this encounter [facility] Work Phone: Evaluation note* Diagnosis Onset Date Resolution Status Admit Date ASHD (arteriosclerotic heart disease) acute December 01, 2024 8:15am Benign prostatic hyperplasia with lower urinary tract symptoms acute Nov 8:15am Hypercholesterolemia acute December 01, 2024 8:15am Hypertension acute December 01, 2 025 8:15am Screening PSA (prostate spec ific antigen) noneactive December 01, 2024 8:15am Wellness examination noneactive December 01, 2024 8:15am [facility] Work Phone: History general Narrative - Reported* Type Description Date Medical History Essential (primary) hypertension Medical History Hyperlipidemia, unspecified Medical History Familial hypercholesterolemia Medical History ASHD (arteriosclerotic heart dis ease) Medical History Benign prostatic hyp erplasia with lower urinary tract symptoms Surgical History COLONOSCOPY 2018 Surgical History PERCUTANEOUS INTERVE NTION (PCI) WITH INSERTION OF STENT INTO LEFT ANTERIOR DESCENDING (LAD) CORONARY ARTERY 2004 Hospitalization History SEE SURGICAL HX [employer] Other Reason for referral (narrative)* Consultation (Routine) - Authorized Specialty Diagnoses / Procedures Referred By Contac t Referred To Contact Cardiology Diagnoses Atherosclerosis of coronary artery, unspecified vessel or lesion type, unspecified whether angina present, unspecified whether jackson or transplanted heart Procedures Follow Up In Cardiology Dagoberto Monk MD [address] [facility] [address] [place] [address] Dagoberto Monk MD [address] [facility] [address] [place] [address] Referral ID Status Reason Start Date Expiration Date V isits Requested Visits Authorized [id number] Authorized 10/29/2023 10/28/[address] [facility] Work Phone: Reason for referral (narrative)No reason for referral information [facility] Work Phone: Summary Purpose Family History Relationship Condition Age at Onset Recorded Date/T violet father Malignant neoplasm Unknown mother Malignant neoplasm Unknown No Family History Records Found Advance Directives Advance Directive Response Recorded Date/ Time Advance Directives No June 02, 2023 2:18pm Chief Complaint * STEPHANIE AUSTIN is being seen for an annual follow-up of. * Patient is in the office for follow-up for the problems noted below. It has been 18 years since hisangioplasty and has had no events since. His risk factor for CAD have been under control. He does have whitecoat hypertension which has been documented over the years. He checks his blood pressure michelle dings on a weekly basis and his systolic pressure never exceeded 140 mmHg, his annual blood work isdue next month and the last years readings were on target. His weight is on target his review of system was done in normal physical examination was entirely normal. He was never smoker. His job is physically demanding at [employer] and he has no plans for [employer] soon. * ASSESSMENT AND PLAN: * 1. Single-vessel coronary artery disease, status post angioplasty of the LAD in 2004. There has been no recurrent disease since his last stress test we have was in 2005 with no recurrent disease at that * time. He is not interested in doing a stress test at this time. * 2. Hyperlipidemia, currently on maximal dose atorvastatin. Lipid profile is ordered. No side effects, historically his LDL readings have been on target * 3. White-coat hypertension has been documented. No change in medical therapy was felt to be necessary at this time. Patient metabolic profile is ordered * 4. Prior myocardial infarction leading to anterior hypokinesis and scarring EF 50%. Currently medical therapy in regard to LV dysfunction will be left unchanged. He remains asymptomatic. * Patient will follow-up with me in 1 year * Dagoberto Monk MD, [facility] Chief Complaint and Reason for Visit Chief Complaint Wellness Reason for Visit ASHD (arteriosclerot ic heart disease) Benign prostatic hyperplasia with lower urinary tract symptoms Hypercholesterolemia Hypertension Screening PSA (prostate specific antigen) Wellness examination Chief Complaint Admit Date wellness December 01, 2024 8:15 am Reason for Visit Admit Date ASHD (arteriosclerotic heart disease) Ju ly 2024 8:15am Benign prostatic hyperplasia with lower urinary tract symptoms December 01, 2024 8:15am Hypercholesterolemia December 01, 2024 8:1 5am Hypertension December 01, 2024 8:15 am Screening PSA (prostate specific antigen ) December 01, 2024 8:15am Wellness examination December 01, 2024 8:1 5am Additional Source Comments (unrecognized sect ion and content) No Status Records FoundNo Status Records FoundNo Status Records FoundNo Status Records FoundNo Status Records Found INFORMATION SOURCE (unrecogn ized section and content) DATE CREATED AUTHOR 12/02/[address] [facility] [facility] DATE CREATED AUTHOR AUTHOR'S ORGANIZ ATION 07/01/2022 [facility] DATE CREATED AUTHOR AUTHOR'S ORGANIZ ATION 10/23/2022 [employer] DATE CREATED AUTHOR AUTHOR'S ORGANIZ ATION 03/15/2023 [facility] DATE CREATED AUTHOR AUTHOR'S ORGANIZ ATION 10/29/2024 [facility] REASON FOR VISIT (unrecogniz ed section and content) Reason Comments Annual Exam Reason Comments Follow-up 1 year, coronary art timothy disease Specialty Diagnoses / Procedures Referred By Sandra t Referred To Contact Cardiology Diagnoses Atherosclerosis of coronary artery, unspecified vessel or lesion type, unspecified whether angina present, unspecified whether jackson or transplanted heart Procedures Follow Up In Cardiology Dagoberto Monk MD [address] [facility] [address] [address] Phone: tel: fax: Dagoberto Monk MD [address] [facility] [address], [address] [address] Phone: tel: fax: Referral ID Status Reason Start Date Expiration Date V isits Requested Visits Authorized [id number] Authorized 10/29/2023 10/28/2024 1 1 Care Teams (unrecognized sec tion and content) Team Status: Active Member Role Status Dates Kenny Fitzpatrick DO Primary Care Provider Active Team Status: Inactive Member Role Status Dates Kenny Fitzpatrick DO Primary Care Provide r, Attending Provider Active Start: December 01, 2023 End: December 01, 2023 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 Relationship Specialty Start Date End Date Kenny Fitzpatrick DO PCP - General 05/05/99 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 Relationship Specialty Start Date End Date Kenny Fitzpatrick DO [address] [place] [address] PCP - General Internal Medicine 10/14/24 Team Status: Inactive Member Role Status Dates Kenny Fitzpatrick DO Primary Care Provider Active Start: December 01, 2024 End: December 01, 2024 Kenny Fitzpatrick DO Attending Provider Active Sta rt: December 01, 2024 End: December 01, 2024 Goals (unrecognized section and content) Goals may be documented in a n alternate section FOR RECORDS PERTAINING TO PATIENTS WHO ARE OR HAVE BEEN ENROLLED IN A CHEMICAL DEPENDENCY/SUBSTANCEABUSE PROGRAM, SOME INFORMATION MAY BE OMITTED. This clinical summary was aggregated from multiple sources. Caution should be exercised in using it in the provision of clinical care. This summary normalizes information from multiple sources, and as a consequence, information in this document may materially change the coding, format and clinical context of patient data. In addition, data may be omitted in some cases. CLINICAL DECISIONS SHOULD BE BASED ON THE PRIMARY CLINICAL RECORDS. [facility] provides no warranty or guarantee of the accuracy or completeness of information in this document.
[2024-12-01 10:13] LABS: Hematocrit 39.7 % (42.0-54.0); Hemoglobin 13.5 g/dL (14.0-18.0); Immature Granulocytes Abs Auto 0.02 10^3/uL (0.00-0.03); Immature Granulocytes Pct Auto 0.3 % (0.0-0.5); Lymphocytes Absolute Auto 2.1 10^3/uL (1.2-3.8); Mean Corpuscular HGB Conc 34.0 g/dL (29.9-35.2); Mean Corpuscular Hemoglobin 31.0 pg (25.9-34.0); Mean Corpuscular Volume 91.3 fL (80.0-94.0); Platelet Count 158 10^3/uL (150-450); Red Blood Count 4.35 10^6/uL (4.70-6.10); White Blood Count 6.7 10^3/uL (4.0-11.0)
[2024-12-01 10:46] LABS: Alanine Aminotransferase 33 U/L (16-63); Albumin Globulin Ratio 1.2; Albumin Level 3.9 g/dL (3.4-5.0); Alkaline Phosphatase 89 U/L (46-116); Anion Gap 12.7; Aspartate Amino Transferase 26 U/L (15-37); Blood Urea Nitrogen 29.0 mg/dL (7.0-18.0); Calcium 9.3 mg/dL (8.5-10.1); Carbon Dioxide 29.3 mmol/L (21.0-32.0); Chloride 105 mmol/L (98-107); Cholesterol 100 mg/dL (<=200); Estimated GFR (African America >60 (>=60 mL/min/1.73m^2); Estimated GFR (Non-African Ame >60 (>=60 mL/min/1.73m^2); Globulin 3.3 g/dL; Glucose 103 mg/dL (74-106); HDL Cholesterol 37 mg/dL (40-60); Potassium 4.0 mmol/L (3.5-5.1); Sodium 143 mmol/L (136-145); Total Protein 7.2 g/dL (6.4-8.2); Triglycerides 99 mg/dL (<=150); VLDL CHOLESTEROL 19.8 mg/dL
== END 2024-12-01 09:04 | disposition home or self-care (01) ==
LOC: LAB 09:09
PROVIDERS: PCP Internal Medicine; Visit Provider Internal Medicine
DX: Z00.00 Encounter for general adult medical examination without abnormal findings (principal); Z12.5 Encounter for screening for malignant neoplasm of prostate
CPT/HCPCS: 36415; 80053; 80061; 85025; G0103

== ENCOUNTER 2025-03-10 11:05 | Outpatient (OUT) | payer OTHER, SELFPAY ==
--- OUTSIDE RECORDS SUMMARY | 2025-03-10 11:11 | XMS_ITS | Clinical Summary ---
Author Organization [facility] Address [address] 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 as directed 90 tablet ctive carvedilol (Coreg) 12.5 mg tablet Indications:Essential (primary) hypertension,Cardiomyopathy, unspecified type (Multi)Take 1 tablet (12.5 mg) by mouth 2 times a day. 180 tablet ctive atorvastatin (Lipitor) 80 mg tablet Indications:Hyperlipidemia, unspecified hyperlipidemia typeTake 1 tablet (80 mg) by mouth once daily at bedtime. 90 tablet ctive amLODIPine (Norvasc) 2.5 mg tablet Indications:Essential (primary) hypertensionTake 1 tablet (2.5 mg) by mouth once daily. 90 tablet ctive nitroglycerin (Nitrostat) 0.4 mg SL tablet Indications:Atherosclerosis of coronary artery, unspecified vessel or lesion type, unspecified whether angina present, unspecified whether [place] or transplanted heartPlace 1 tablet (0.4 mg) under the tongue every 5 minutes if needed for chest pain (Report to [facility] ER or call 911 after third dose.). 100 tablet 5Active losartan (Cozaar) 100 mg tablet Indications:Atherosclerosis of coronary artery, unspecified vessel or lesion type, unspecified whether angina present, unspecified whether [place] or transplanted heart,Cardiomyopathy, unspecified type (Multi)TAKE 1 TABLET BY MOUTH EVERY DAY 90 tablet 5Active hydroCHLOROthiazide (HYDRODiuril) 25 mg tablet Indications:Cardiomyopathy, unspecified type (Multi),White coat syndrome with hypertensionTAKE 1 TABLET BY MOUTH EVERY DAY 90 tablet 5Active Active Problems ProblemNoted DateDiagnosed DateNever smoked wcmnjym8510/28/2024MI 24.0-24.9, adult10/29/2023therosclerosis of coronary pdquqw5507/14/2023ardiomyopathy 07/14/20230676Afxftfjscxmloz38/11/2024Status post coronary wecqbdpnubz74/11/2024 White coat syndrome with klulyyweprng01/11/2024 Encounters DateTypeDepartmentCare UgojEweozkrqwlk38/21/[address]25[address] [id number] Lorenzo Monk MD Atherosclerosis of coronary artery, unspecified vessel or lesion type, unspecified whether angina present, unspecified whether [place] or transplanted heart; Cardiomyopathy, unspecified type (Multi); White coat syndrome with hypertensionfrom Last 3 Months Immunizations ImmunizationAdministration DatesNext DueFlu vaccine, quadrivalent, high-dose, preservative free, age 65y+ (FLUZONE)01/19/2022,01/20/2021Flu vaccine, trivalent, preservative free, HIGH-DOSE, age 65y+ (Fluzone)01/23/2018,01/01/2017 ,02/03/2016Influenza, Seasonal, Quadrivalent, Gmhmualasr99/09/2023Pneumococcal conjugate vaccine, 13-valent (PREVNAR 13)03/20/2016Pneumococcal polysaccharide vaccine, 23-valent, age 2 years and older (PNEUMOVAX 23)02/07/2017,02/07/2007 Zoster, live02/02/2014 Family History Medical HistoryRelationNameCommentsHypertensionBrotherNo Known ProblemsFatherNo Known ProblemsMotherRelationNameStatusCommentsBrotherFatherMother Social History Tobacco UseTypesPacks/DayYears UsedDateSmoking Tobacco: NeverSmokeless Tobacco: NeverAlcohol UseStandard Drinks/WeekCommentsNever0 (1 standard drink = 0.6 oz pure alcohol)Sex and Gender InformationValueDate RecordedSex Assigned at Not on fileLegal JroJdxq61/25/2022 9:57 AM ESTGender IdentityNot on fileSexual OrientationNot on file Last Filed Vital Signs Vital SignReadingTime TakenCommentsBlood Veebayzi577/8610/28/2024 8:39 AM EDT Hncns819910/28/2024 8:39 AM EDTTemperature--Respiratory Rate--Oxygen Saturation-- Inhaled Oxygen Concentration--Fvolei60 kg (161 lb)10/28/2024 8:39 AM EDTHeight 172.7 cm (5' 8 )10/28/2024 8:39 AM EDTBody Mass Index24.48010/28/2024 8:39 AM EDT Plan of Treatment DateTypeDepartmentCare Team (Latest Contact Info)Ivvykkcxxob88/30/2026 8:30 AM EDTOffice Visit [facility] [address] [phone] Lorenzo Monk MD [address]03 [facility] [address] [place] [address] Health MaintenanceDue DateLast DoneCommentsCT Gmjtumpmusgp40/15/1951Colonoscopy 1950olorectal Cancer Jfpaeesjk35/15/1951FIT-DNA (Cologuard)1950FIT 1950 9123Rmdcqziigglhi81/15/1951Hepatitis C Cocggmaae54/15/1969RSV High Risk: (Elderly (60+) or Population) (1 - Risk 50-74 years 1-dose series) 2000MMR Vaccines (1 of 1 - Standard series)03/02/2014Zoster Vaccines (2 of 3)Yearly Adult Tmnijbqp72/Influenza Vaccine (#1)509/10/2023, 01/11/2023, 01/19/2022, Additional history exists COVID-19 Vaccine (2 - season)505/1Lipid Panel10/11/2025 1DTaP/Tdap/Td Vaccines (2 - Tdap)/1Pneumococcal JuowoazDptdcbyxh47/06/2017, 03/20/2016, 11/22/2015, Additional history existsHIB VaccinesAged OutNo longer eligible based on patient's age to complete this topic HPV VaccinesAged OutNo longer eligible based on patient's age to complete this topicHepatitis A VaccinesAged OutNo longer eligible based on patient's age to complete this topicHepatitis B VaccinesAged OutNo longer eligible based on patient's age to complete this topicIPV VaccinesAged OutNo longer eligible based on patient's age to complete this topicMeningococcal VaccineAged OutNo longer eligible based on patient's age to complete this topicRotavirus VaccinesAged Out No longer eligible based on patient's age to complete this topic Procedures Procedure NamePriorityDate/TimeAssociated DiagnosisCommentsLIPID PANELRoutine 10/11/2020 8:43 AM EDT from Last 3 Months or Most Recently Relevant to Health Maintenance Results * Lipid Panel (10/11/2020 8:43 AM EDT)ComponentValueRef RangeTest MethodAnalysis TimePerformed AtPathologist DriozhkdaXxifohepgov1404 - 199 mg/dLORLANDO [facility] LABComment: . ?AGE ?DESIRABLE ?? BORDERLINE HIGH ?? HIGH 0-19 Y 0 - 169 170 - 199 >/= 200 20-24 Y 0 - 189 190 - 224 >/= 225 >24 Y 0 - 199 200 - 239 >/= 240 All ranges are based on fasting samples. Specific therapeutic targets will vary based on patient-specific cardiac risk. . Pediatric guidelines reference:Pediatrics 2011, 128(S5). Adult guidelines reference: NCEP ATPIII Guidelines, ??NELLI 2001, 258:2486-97 . Venipuncture immediately after or during the administration of Metamizole may lead to falsely low results. Testing should be performed immediately prior to Metamizole dosing. HDL43.0mg/dLORLANDO VA MEDICAL [facility]ENTER LABComment: . ?AGE ?VERY LOW ?? LOW ? NORMAL ?HIGH ?? 0-19 Y < 35 < 40 40-45 ---- 20-24 Y ---- < 40 >45 ---- >24 Y ---- < 40 40-60 >60 . Cholesterol/HDL Ratio3.5EINLAND VALLEY [facility] LABComment: REF VALUES DESIRABLE < 3.4 HIGH RISK > 5.0 TSW515 - 99 mg/dLORLANDO VA [facility] LABComment: . ? NEAR ?BORD ?AGE ?DESIRABLE ??OPTIMAL ?HIGH ? HIGH ? VERY HIGH 0-19 Y 0 - 109 --- 110-129 >/= 130 ---- 20-24 Y 0 - 119 --- 120-159 >/= 160 ---- >24 Y 0 - 99 100-129 130-159 160-189 >/=190 . LGDC982 - 40 mg/dLOR[facility]O [facility] VXEAnrkeqpxiwmuv5017 - 149 mg/dLORLANDO VA [facility] LABComment: . ?AGE ?DESIRABLE ?? BORDERLINE HIGH ?? HIGH ? VERY HIGH 0 D-90 D ?19 - 174 ? ---- ? ---- ?---- 91 D- 9 Y 0 - 74 [...] be performed immediately prior to Metamizole dosing. Specimen (Source)Anatomical Location / LateralityCollection Method / Volume Collection TimeReceived Time10/11/2020 8:43 AM EDT10/11/2020 8:02 PM EDT Narrative Authorizing ProviderResult TypeResult StatusLorenzo Monk MDLAB BLOOD ORDERABLESFinal ResultPerforming OrganizationAddressCity/State/ZIP CodePhone Number [facility] from Last 3 Months or Most Recently Relevant to Health Maintenance Insurance * Guarantor: Cooper Rivera TypeRelation to PatientDate of BirthPhoneBilthomas memorial hospital AddressPersonal/HnlpjmFvtw78/15/1951 [address] [place] [address] Care Teams Team MemberRelationshipSpecialtyStart DateEnd Date Kenny Fitzpatrick DO [address] [place] [address] PCP - GeneralInternal Medicine10/14/24
--- OUTSIDE RECORDS SUMMARY | 2025-03-10 11:14 | XMS_ITS | CCD ---
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 Kenny Fitzpatrick [facility] Unavai sara Monk, Dr. Dagoberto Rivera Referring Rut vailable Lacho, Dr. Dagoberto Rivera Attending Rut vailable Kenny Fitzpatrick DO Primary Care Provider Kenny Fitzpatrick DO Primary Care Provider DAGOBERTO MONK Attending Unavailable DAGOBERTO MONK Referring Unavailable KENNY FITZPATRICK Primary Care Unavailable Kenny Fitzpatrick DO Primary Care Provider [phone] Kenny Fitzpatrick DO Attending Provider Medications Current Medications MedicationDrug Class(es)DatesSig (Normalized)Sig (Original)amLODIPine 2.5 mg oral tablet (9 sources)Dihydropyridine Calcium Channel BlockerStart: 11-26-2021 End: 19-28-5903dkps 1 tablet by mouth once dailyAmlodipine 2.5 mg tablet Active 2.5 MG PO Daily December 01, 2023 12:00am Complies with drug therapyaspirin 81 mg delayed release oral tablet (10 sources)Platelet Aggregation Inhibitor, Nonsteroidal Anti-inflammatory Drug Start: 10-16-2023 End: 37-24-9869tcru 1 tablet by mouth once dailyAspirin 81 mg tablet,delayed release (/EC) Active 81 MG PO Daily December 01, 2023 12:00am Complieswith drug therapyStart: 99-27-9321qush 1 tablet by mouth once dailyAspirin Low Dose 81 MG Oral Tablet Delayed Release TAKE 1 TABLET BY MOUTH EVERY DAY DIRECTED Sly tity: 90 Refills: 3 Ordered: 23-Oct-2022 Dagoberto Monk MD Start : 05-Oct-2021 ActiveASPIRIN ADULT LOW DOSE 81 MG ORAL TABLET DELAYED RELEASE (1 source)Start: 63-30-7775GCIHYWE ADULT LOW DOSE 81 MG ORAL TABLET DELAYED RELEASE ASPIRIN ADULT LOW DOSE 81 MG ORAL TABLET DELAYED RELEASE( ) Active -Hx Entry for 0 Nov, Not-Takingatorvastatin 80 mg oral tablet (7 sources)HMG-CoA Reductase InhibitorStart: 12-01-2023 End: 24-82-8789zyng 1 tablet by mouth once daily at bedtimeatorvastatin (Lipitor) 80 mg tablet Indications: Hyperlipidemia, unspecified hyperlipidemia type Take 1 tablet (80 mg) by mouth once daily at bedtime. 90 tablet 3 09/24/2024 09/24/2025 ActiveStart: 26-03-0359bvzm 1 tablet by mouth once daily at bedtimeatorvastatin (Lipitor) 80 mg tablet Indications: Hyperlipidemia, unspecified hyperlipidemia type TAKE 1 TABLET BY MOUTH EVERYDAY AT BEDTIME 90 tablet 3 10/16/2023 ActiveStart: 42-87-8656hfju 1 tablet by mouth once daily in the eveningAtorvastatin Calcium 80 MG 1 tablet Orally daily in evening Nov, Activecarvedilol 12.5 mg oral tablet (9 sources)alpha-Adrenergic Jacques, beta-Adrenergic BlockerStart: 12-01-2023 End: 56-97-1795erwj 1 tablet by mouth twice dailycarvedilol (Coreg) 12.5 mg tablet Indications: Essential (primary) hypertension , Cardiomyopathy, un specified type (Multi) Take 1 tablet (12.5 mg) by mouth 2 times a day. 180 tablet 3 09/24/2024 09/24/2025 ActiveStart: 55-50-3252bitg 1 tablet by mouth twice dailycarvedilol (Coreg) 12.5 mg tablet Indications: Essential (primary) hypertension TAKE 1 TABLET BY MOUTH TWICE A DAY 180 tablet 3 10/06/2023 Active Start: 16-26-7887BTTYWWWECP 12.5 MG ORAL TABLET CARVEDILOL 12.5 MG ORAL TABLET( ) Active -Hx Entry for 0 Nov, Not-TakinghydroCHLOROthiazide 25 mg oral tablet (8 sources)Thiazide DiureticStart: 11-23-2021 End: 18-41-7046nejv 1 tablet by mouth once dailyHydrochlorothiazide 25 mg tablet Active 25 MG PO Daily December 01, 2023 12:00am Complies with drug therapylosartan potassium 50 mg oral tablet (9 sources)Angiotensin 2 Receptor BlockerStart: 85-75-8536qrvr 1 tablet by mouth once dailyLosartan 50 mg tablet Active 50 MG PO Daily December 01, 2023 12:00am Complies with drug therapyStart: 10-29-2023 End: 51-96-6879skcx 1 tablet by mouth once dailylosartan (Cozaar) 100 mg tablet Indications: Atherosclerosis of coronary artery, unspecified vesselor lesion type, unspecified whether angina present, unspecified whether [place] or transplanted heart , Cardiomyopathy, unspecified type (Multi) Take 1 tablet (100 mg) by mouth once daily. 90 tablet ActiveStart: 97-25-4874XOMTNDLF POTASSIUM 50 MG ORAL TABLET LOSARTAN POTASSIUM 50 MG ORAL TABLET( ) Active -Hx Entry for Nov, 2021 Ald-Bvhuyitllzcavg-kvw/ferrous fumarate (MULTI VITAMIN ORAL) (2 sources)take 1 tablet by mouth once dailymultivit-min/ferrous fumarate (MULTI VITAMIN ORAL) Take 1 tablet by mouth once daily. Activenitroglycerin 0.4 mg sublingual tablet (10 sources)Nitrate VasodilatorStart: 66-47-8015uggbwimmqmbof (Nitrostat) 0.4 mg SL tablet Indications: Atherosclerosis of coronary artery, unspecified vessel or lesion type, unspecified whether angina present, unspecified whether [place] or transplanted heart Place 1 tablet (0.4 mg) under the tongue every 5 minutes if needed for chest pain ([facility] or call 911 after third dose.). 100 tablet 1 10/28/2024 ActiveStart: 08-13-2021 End: 02-94-4046eplgqocqakqxz (Nitrostat) 0.4 mg SL tablet Indications: Atherosclerosis of coronary artery, unspecified vessel or lesion type, unspecified whether angina present, unspecified whether [place] or transplanted heart Place 1 tablet (0.4 mg) under the tongue every 5 minutes if needed for chest pain (Report to [facility] ER or call 911 after third dose.). 25 tablet 11 10/29/2023 10/28/2024 Discontinued (Reorder)omega 4-mwu-quh-fish oil (Fish OiL) 300-1,000 mg capsule,delayed release(DR/EC) (2 sources)take 300-1000 mg by mouth once dailyomega 8-cxl-ltj-fish oil (Fish OiL) 300-1,000 mg capsule,delayed release(DR/EC) Take 1 capsule by mouth once daily. Active Completed/Discontinued Medications MedicationDrug Class(es)DatesSig (Normalized)Sig (Original)citric acid 75 mg/ml / magnesium oxide 21.9 mg/ml / picosulfate sodium 0.0625 mg/ml oral solution (1 source)Calculi Dissolution Agent, Anti-coagulantStart: 66-21-3202sfcx 160 mL by mouth in the evening, then take 160 mL by mouth twice daily in the evening Clenpiq 10-3.5-12 MG-GM -GM/160ML 160 ML AT 3:00 PM AND 160 ML AT 9:00 PM Orally TWICE A DAY for 1 days Jan, Not-TakingFish Oil 1000 MG Oral Capsule Delayed Release (2 sources)take 1 capsule by mouth once dailyFish Oil 1000 MG Oral Capsule Delayed Release TAKE 1 CAPSULE Daily Quantity: 0 Refills: 0 Ordered: 24-Oct-2021 DO ActiveMulti Vitamin Oral Tablet (2 sources)take 1 tablet by mouth once dailyMulti Vitamin Oral Tablet TAKE 1 TABLET DAILY. Quantity: 0 Refills: 0 Ordered: 24-Oct-2021 DO Active Problems Active Problems Problem ClassificationProblemDateDocumented DateEpisodic/ChronicAcute bronchitis (2 sources)Acute bronchitis; Translations: [Acute bronchitis, unspecified]Onset: 06-68-8861JntphupuXzucvdwd atherosclerosis and other heart disease (20 sources)Coronary atherosclerosis; Translations: [Coronary atherosclerosis of unspecified type of vessel, [place] or graft]Onset: 99-63-6571XlckejsToqsbzu on above:PCI/stent LAD - 2004Coronary atherosclerosis and other heart disease (11 sources)Past history of procedure; Translations: [Percutaneous transluminal coronary angioplasty status]Onset: 814440-30-5049McggpctaXhqfpzgdy of lipid metabolism (18 sources)Hyperlipidemia; Translations: [Other and unspecified hyperlipidemia] Onset: 11-29-3228EljhdtaIubhtouxa hypertension (18 sources)Essential hypertension; Translations: [Unspecified essential hypertension]Onset: 68-49-0318VfmvrmqIjdlxcztrztxo symptoms and ill-defined conditions (1 source)NocturiaEpisodicHyperplasia of prostate (6 sources)Nocturia due to benign prostatic hypertrophy; Translations: [Benign prostatic hyperplasia with lower urinary tract symptoms]ChronicHypertension with complications and secondary hypertension (1 source)Hypertensive heart disease without heart failure; Translations: [HTN HEART DISEASE W/O HEART FAIL]Onset: 31-00-4768JwsawcnSevhzhunetsgj and screening for infectious disease (1 source)Vaccination given; Translations: [Encounter for immunization]Episodic Other and ill-defined heart disease (1 source)Left ventricular systolic dysfunction; Translations: [Other ill- defined heart diseases]00-30-9126XgaqhdbFqesy injuries and conditions due to external causes (1 source)History of fall; Translations: [History of falling]EpisodicOther screening for suspected conditions (not mental disorders or infectious disease) (13 sources)Patient encounter status; Translations: [Screening for malignant neoplasms of prostate]Onset: 11-26-2021 Resolved: 48-28-7186UkbfiukbAmdf-; endo-; and myocarditis; cardiomyopathy (except that caused by tuberculosis or sexually transmitted disease) (10 sources)Cardiomyopathy; Translations: [Other primary cardiomyopathies]Onset: 391951-17-2982NkjajcuJdhlvqke codes; unclassified (6 sources)Body mass index 20-24 - normal; Translations: [Body Mass Index between 19-24, adult]Onset: 346486-02-2774CtlhmlyiVjnanrse codes; unclassified (2 sources)Never smoked tobacco; Translations: [Other specified health status] Onset: 928893-47-7893HgxaxsgqAprtjbln codes; unclassified (2 sources)Body mass index (BMI) 24.0-24.9, adult; Translations: [Body mass index (BMI) 24.0-24.9, adult]Onset: 50-69-0103FprjigddRpcdhdds codes; unclassified (2 sources)Other specified health status; Translations: [Other specified health status]Onset: 06-33-4599Flvpzlhn Past or Other Problems Problem ClassificationProblemDateDocumented DateEpisodic/ChronicOther nutritional; endocrine; and metabolic disorders (3 sources)Overweight in adulthood with body mass index of 25 or more but less than 30; Translations: [Overweight]Onset: 210990-29-1685XfvwssgfNsyqc nutritional; endocrine; and metabolic disorders (1 source)Overweight; Translations: [Overweight]Onset: 64-64-8625UqkpemjxTivrg upper respiratory infections (1 source)Acute maxillary sinusitis; Translations: [Acute maxillary sinusitis, unspecified]Onset: 85-44-6551BtqqujkyPjichqjrwnrl (2 sources)Never smoked tobacco; Translations: [Never a smoker]Unclassified (2 sources)Onset: 114594-16-0923 Results Test NameValueInterpretationReference RangeFacilityOffice Visit (Cardiology)on 24-86-4179Pgghqa-up visitDiagnoses/Problems Assessed Cardiomyopathy (425.4) (I42.9) Status post coronary [...] smoker. His job is physically demanding at [employer] and he has no plans for chcf soon. ASSESSMENT AND PLAN: 1. Single-vessel coronary [...] me in 1 year Dagoberto Monk MD, [facility] Surgical History Problems History of Cardiac catheterization [...] Recorded By: Fabiana Hernandes; (more content not included)...NormalUH TouchworksTobacco Screening.on 15-45-8101Jeyzf depression screening assessmentNoKlickitat Valley Health [place] 250 DO Work Phone: Fall risk assessmenta) No falls within the last year [facility] 250 DO Work Phone: Tobacco use status CPHSb) NoMWhidbeyhealth [facility] 250 DO Work Phone: CBC AUTO DIFFon 83-66-4563DDVJ #0.0 103/ulNormal 0.0-0.1The TrihealthComment on above:Performed By: #### CBC #### [facility] [address] [address] [address] Unruly Backsophils/100 WBC (Bld)0.3 %Normal0.2-2.0The [facility] Comment on above:Performed By: #### CBC #### [facility] [address] [place] [address] Dr. Unruly Muro #0.2 103/ulNormal0.0-0.7The TrihealthComment on above: Performed By: #### CBC #### [facility] [address] [place] [address] Dr. Unruly Corderoosinophils/100 WBC (Bld)3.1 %Normal0.9-7.0The [facility] Comment on above:Performed By: #### CBC #### [facility] [address] [place] [address] Dr. Unruly Corderorythrocyte distribution width (RBC) [Ratio]12.7 %Qpdmzf58.0-15.0 The TrihealthComment on above:Performed By: #### CBC #### [facility] [address] [place] [address] Dr. Unruly SinghHematocrit (Bld) [Volume fraction]43.2 %Jounxz60.0-54.0The TrihealthComment on above:Performed By: #### CBC #### [facility] [address] [place] [address] Dr. Unruly SinghHemoglobin (Bld) [Mass/Vol]14.6 g/lXItoigl31.0-18.0The TrihealthComment on above:Performed By: #### CBC #### [facility] [address] [place] [address] Dr. Unruly Richardson #0.02 10e3/ulNormal0.00-0.03The TrihealthComment on above:Performed By: #### CBC #### [facility] [address] [place] [address] Dr. Unruly Richardson %0.3 %Normal0.0-0.5The TrihealthComment on above: Performed By: #### CBC #### [facility] [address] [place] [address] Dr. Unruly Amaro #1.9 103/ulNormal1.2-3.8The TrihealthComment on above:Performed By: #### CBC #### [facility] [address] [place] [address] Dr. Unruly Mcgeehocytes/100 WBC (Bld)27.4 %Ijsxye24.5-60.0The TrihealthComment on above:Performed By: #### CBC #### [facility] [address] [place] [address] Dr. Unruly Baker DIFF REQNONormalThe TrihealthComment on above: Performed By: #### CBC #### [facility] [address] [place] [address] Dr. Unruly Lanza (RBC) [Entitic mass]30.9 qjXieqlm13.9-34.0The TrihealthComment on above:Performed By: #### CBC #### [facility] [address] [place] [address] Dr. Unruly Suero (RBC) [Mass/Vol]33.8 g/tMKisoqu43.9-35.2The TrihealthComment on above:Performed By: #### CBC #### [facility] [address] [place] [address] Dr. Unruly Suero (RBC) [Entitic vol]91.3 nPPpvtku10.0-94.0The TrihealthComment on above:Performed By: #### CBC #### [facility] [address] [place] [address] Dr. Unruly Jaramillo #0.5 103/ulNormal0.3-0.8The TrihealthComment on above:Performed By: #### CBC #### [facility] [address] [place] [address] Dr. Unruly Dongocytes/100 WBC (Bld)7.7 %Normal1.7-12.0The [facility] Comment on above:Performed By: #### CBC #### [facility] [address] [place] [address] Dr. Unruly Fry #4.3 103/ulNormal1.4-6.5The TrihealthComment on above:Performed By: #### CBC #### [facility] [address] [place] [address] Dr. Unruly Rogersutrophils/100 WBC (Bld)61.2 %Yxwecd77.0-75.0The TrihealthComment on above:Performed By: #### CBC #### [facility] [address] [place] [address] Dr. Unruly SinghPlatelet mean volume (Bld) [Entitic vol]10.2 fLNormal9.5-13.5The TrihealthComment on above:Performed By: #### CBC #### [facility] [address] [place] [address] Dr. Unruly SinghPLT169 103/uyBpyhfl502-139Cfr TrihealthComment on above: Performed By: #### CBC #### [facility] [address] [place] [address] Dr. Unruly SinghRBC4.73 106/ulNormal4.70-6.10The [facility]Com[facility] on above:Performed By: #### CBC #### [facility] [address] [place] [address] Dr. Unruly SinghWBC7.0 103/ulNormal4.0-11.0The [facility] on above: Performed By: #### CBC #### [facility] [address] [place] [address] Dr. Unruly SinghLIPID PROFILEon 58-72-1428JRHZ-HDL RATIO [facility] on above:Result Comment: 3.3 - 4.4 LOW RISK 4.4 - 7.1 AVERAGE RISK 7.1 - 11.0 MODERATE RISK >11.0 HIGH RISKPerformed By: #### AST, LIPID, BMP, ALT #### [facility] [address] [place] [address] Dr. Unruly SinghCholesterol [Mass/Vol]126 mg/dLNormal<=200[facility] Comment on above:Performed By: #### AST, LIPID, BMP, ALT #### [facility] [address] [address] [address] Unruly Patricioesterol in HDL [Mass/Vol]47 mg/mWQdmphj70-82Stw TrihealthComment on above:Performed By: #### AST, LIPID, BMP, ALT #### [facility] [address] [address] [address] Unruly Patricioesterol in LDL [Mass/Vol]62.8 mg/dLNoUniversity Hospitals Health SystemComment on above:Performed By: #### AST, LIPID, BMP, ALT #### [facility] [address] [place] [address] Dr. Unruly Kat.total/Cholesterol in HDL [Mass ratio]2.7 {ratio} NormalMercy Health St. Anne HospitalComment on above:Performed By: #### AST, LIPID, BMP, ALT #### [facility] [address] [place] [address] Dr. Unruly Phan NORMAL> or = 60 mg/dl - LOW CARDIOVASCULAR RISK <40 mg/dl - HIGH CARDIOVASCULAR RISKOhio State University Wexner Medical CenterComment on above:Performed By: #### AST, LIPID, BMP, ALT #### [facility] [address] [place] [address] Dr. Unruly Proctor CALC NORMALSEE BELOWNoUniversity Hospitals Health SystemComment on above:Result Comment: <100 mg/dl OPTIMAL 100 - 129 mg/dl NEAR OR ABOVE OPTIMAL 130 - 159 mg/dl BORDERLINE HIGH 160 - 189 mg/dl HIGH >190 mg/dl VERY HIGH Performed By: #### AST, LIPID, BMP, ALT #### [facility] [address] [address] [address] Unruly SinghTriglyceride [Mass/Vol]81 mg/dLNormal<=150[facility] Comment on above:Performed By: #### AST, LIPID, BMP, ALT #### [facility] [address] [address] [address] Yilan ChangVLDL CALC16.2 mg/dLNormalThe TrihealthComment on above: Performed By: #### AST, LIPID, BMP, ALT #### [facility] [address] [address] [address] Unruly SinghPROF CHEM 8 (BAS METB)on 74-81-8301Nqmpm gap [Moles/Vol]10.8 mmol/LNormalThe TrihealthComment on above:Performed By: #### AST, LIPID, BMP, ALT #### [facility] [address] [address] [address] Unruly SinghCalcium [Mass/Vol]9.4 mg/dLNormal8.5-10.1The [facility] Comment on above:Performed By: #### AST, LIPID, BMP, ALT #### [facility] [address] [address] [address] Unruly SinghChloride [Moles/Vol]106 mmol/SLpkacu94-628Toc [facility] Comment on above:Performed By: #### AST, LIPID, BMP, ALT #### [facility] [address] [address] [address] Unruly SinghCO2 [Moles/Vol]30.7 mmol/AUilzly25.0-32.0[facility] Comment on above:Performed By: #### AST, LIPID, BMP, ALT #### [facility] [address] [address] [address] Unruly SinghCreatinine [Mass/Vol]1.26 mg/dLNormal0.70-1.30The TrihealthComment on above:Performed By: #### AST, LIPID, BMP, ALT #### [facility] [address] [address] [address] Tolliver ChangEGFR-AF TUNISIAN>60Normal>=60The TrihealthComment on above:Performed By: #### AST, LIPID, BMP, ALT #### [facility] [address] [address] [address] Unruly CorderoGFR-NON AF AQJBBMEK88 mL/min/1.25b1Mvthibljnx low>=60The TrihealthComment on above:Performed By: #### AST, LIPID, BMP, ALT #### [facility] [address] [address] [address] Unruly SinghGlucose [Mass/Vol]113 mg/dLCritically jzkl05-504Vdd TrihealthComment on above:Performed By: #### AST, LIPID, BMP, ALT #### [facility] [address] [place] [address] Dr. Unruly SinghPotassium [Moles/Vol]4.5 mmol/LNormal3.5-5.1The [facility] Comment on above:Performed By: #### AST, LIPID, BMP, ALT #### [facility] [address] [place] [address] Dr. Unruly Odendium [Moles/Vol]143 mmol/MNgkupf370-026Kwi [facility] Comment on above:Performed By: #### AST, LIPID, BMP, ALT #### [facility] [address] [place] [address] Dr. Unruly SinghUrea nitrogen [Mass/Vol]24.0 mg/dLCritically high7.0-18.0The [facility] on above:Performed By: #### AST, LIPID, BMP, ALT #### [facility] [address] [place] [address] Dr. Unruly Ash nitrogen/Creatinine [Mass ratio]19.0 mg/mgNormalThe TrihealthComment on above:Performed By: #### AST, LIPID, BMP, ALT #### [facility] [address] [place] [address] Dr. Unruly Zafar 14-78-2031IQX [Catalytic activity/Vol]27 U/BBwwcpg38-35Lpi TrihealthComment on above:Performed By: #### AST, LIPID, BMP, ALT #### [facility] [address] [place] [address] Dr. Unruly Sena 88-58-7162WOS [Catalytic activity/Vol]33 U/RYtevtw45-07Orc TrihealthComment on above:Performed By: #### AST, LIPID, BMP, ALT #### [facility] [address] [address] [address] Unruly Caceres Visit (Cardiology)on 59-33-3152Ymdmrj-up visit Diagnoses/Problems Assessed Atherosclerosis of coronary artery [...] my direction and personally dictated by me. Ihave reviewed the chart and agree that the [...] previous PCI in 2004. He works with [employer] in [place] and has active lifestyle and has had [...] me in 1 year Dagoberto Monk MD, [facility] Surgical History Problems History of Cardiac catheterization [...] Review of Systems Constitution (more content not included)...NormalUH Touchworks Vital Signs Date TimeVital SignValuePerforming QxwesthsoNndlaeph97-31-4625 08:38-0400Body sidyel733.72 cmBenjamin Ball DO Work Phone: [phone]83[facility]07-30-2025 08:38-0400 Body mass index (BMI) [Ratio]23.9 kg/f4Zhyqgdtv Ball DO Work Phone: [phone]07-30-2025 08:38-0400 Body salxep05.38 kgBenjamin Ball DO Work Phone: [phone] [place], [place] 2615007-30-2025 08:38-0400 Diastolic blood kpbcihmz31 mm[Hg]Kenny Ball DO Work Phone: [phone]07-30-2025 08:38-0400 Heart rate69 /minBenjamin Ball DO Work Phone: [phone]07-30-2025 08:38-0400 Respiratory rate12 /minBenjamin Ball DO Work Phone: [phone] [place], [place] 2615007-30-2025 08:38-0400 Systolic blood whajqbzs163 mm[Hg]Kenny Ball DO Work Phone: [phone]06-26-2025 08:39-0400 Body txewwc213.7 cmDagoberto Monk MD Work Phone: [facility]06-26-2025 08:39-0400 Body mass index (BMI) [Ratio]24.48 kg/a4PsncndDagoberto Monk MD Work Phone: [facility]06-26-2025 08:39-0400 Body nxigte09.03 kgDagoberto Monk MD Work Phone: [phone]06-26-2025 08:39-0400 Diastolic blood bchimjow65 mm[Hg]Dagoberto Monk MD Work Phone: [phone]06-26-2025 08:39-0400 Heart rate78 /Miranda Monk MD Work Phone: [phone] [place], [place] [address]322706-26-2025 08:39-0400 Systolic blood mm[Hg]Dagoberto Monk MD Work Phone: [address] [place], [place] 448[address]07-29-2024 08:24-0400 Body owytas982.72 cmGal[facility]07-29-2024 08:24-0400Body mass index (BMI) [Ratio]24.6 kg/b2FjkjcvaupGalion Community Hospital07-29-2024 08:24-0400Body .59 kgGal[facility] Hospital07-29-2024 08:24-0400Diastolic blood qlwhifrt94 mm[Hg][facility] 12-01-2023 08:24-0400Heart rate72 /[facility] 12-01-2023 08:24-0400Respiratory rate12 /[facility] 12-01-2023 08:24-0400Systolic blood mm[Hg][facility]06-26-2024 08:12-0400Body wmihkc157.7 cmDagoberto Monk MD Work Phone: [facility]06-26-2024 08:12-0400 Body mass index (BMI) [Ratio]25.24 kg/g2ArvbaoDagoberto Monk MD Work Phone: [address] [place], [place] 448[address]06-26-2024 08:12-0400 Body .3 kgDagoberto Monk MD Work Phone: [phone] [place], [place] [address]322706-26-2024 08:12-0400 Diastolic blood qkptmroc53 mm[Hg]Dagoberto Monk MD Work Phone: [facility]06-26-2024 08:12-0400 Heart rate74 /Miranda Monk MD Work Phone: [facility]06-26-2024 08:12-0400 Systolic blood ocfzyaem582 mm[Hg]Dagoberto Monk MD Work Phone: [facility]07-26-2023 08:30-0400 Body xbseei491.18 cmBenjamin Ball Other [facility] [employer] Other 07-26-2023 08:30-0400Body mass index (BMI) [Ratio] 25.31 kg/x1Gziorkco Ball Other [employer] Other 07-26-2023 08:30-0400Body pujqui25.3 kgBenjamin Ball Other [place] [employer] Other 07-26-2023 08:30-0400Diastolic blood qgzofbkl86 mm[Hg] Kenny Ball Other [place] [employer] Other 07-26-2023 08:30-0400Respiratory rate12 /minBenjamin Ball Other [place] [employer] Other 07-26-2023 08:30-0400Systolic blood kiubvltt667 mm[Hg] Kenny Ball Other [employer] Other 06-21-2023 08:07-0400Body .72 cmBenjamin E Ball Work Phone: [phone]-[facility]ov[facility] 250 DO Work Phone: [phone] 08:07-0400Body mass index (BMI) [Ratio] 25.09 kg/r3Rorofida E Ball Work Phone: [phone]-Qaaci [facility] DO Work Phone: 1(342) 453-648506-21-2023 08:07-0400Body surface area Derived from formula1.88 w1Hikuecqb E Ball Work Phone: [phone]-Qnacl [facility] DO Work Phone: 1(811) 740-120406-21-2023 08:07-0400Body lomgmg56.84 kgBenjamin E Ball Work Phone: [phone]) [phone]-Dxnpx [facility] DO Work Phone: 1(606) [phone] 08:07-0400Diastolic blood uzgrwphc78 mm[Hg] Kenny E Ball Work Phone: 1([phone]-Bsozz [facility] DO Work Phone: 1(648) [phone] 08:07-0400Heart rate72 /minBenjamin E Ball Work Phone: [phone]-Oorwg [facility] DO Work Phone: 1(875) 573-485006-21-2023 08:07-0400Systolic blood banuwdrf641 mm[Hg] Kenny E Ball Work Phone: [phone]-Oxsuz [facility] DO Work Phone: 1(421) 308-544207-25-2022 00:00-234301.8 1Benjamin E Ball Work Phone: [phone]-Ynjrn [facility] DO Work Phone: Comment on above:FSLDL Encounters Encounter DateEncounter TypeCare ProviderFacilityStart: 12-01-2024 End: 97-03-2150ysucyexyrtMlgthwxi Ball DO Work Phone: [facility] Work Phone: Start: 12-01-2024 End: 17-39-4102Ptjszpn encounter procedureBenjamin Ball DO-[facility] Work Phone: Start: 12-01-2024 End: 92-74-0879Ztkyznb encounter statustabatha [facility]: 10-28-2024 End: 41-56-4647Rznntd outpatient visit 25 minutesDagoberto Monk MD Work Phone: uh [facility] CenterComment on above:Atherosclerosis of coronary artery, unspecified vessel or lesion type, unspecified whether angina present, unspecified whether [place] or transplanted heart (Primary Dx); Status post coronary angioplasty; White coat syndrome with hypertension; Left ventricular systolic dysfunction; Mixed hyperlipidemia; BMI 24.0-24.9, adult; Never smoked tobaccoStart: 10-28-2024 End: 77-46-2191gfybupktdbWVGAAX [facility] CenterStart: 12-01-2023 End: 46-90-3650bqyxqspujpSniwmqnzdParkwood Hospital Work Phone: Start: 12-01-2023 End: 51-36-7124Dsbpensme for general adult medical examination without abnormal findingsKettering Health Troytart: 12-01-2023 End: 58-75-8693Iuhcdux encounter procedureM[facility] Physician [facility] Work Phone: Start: 10-29-2023 End: 28-03-6594Druwjh outpatient visit 25 minutesDagoberto Mokn MD Work Phone: uh [facility] Centerment on above:Atherosclerosis of coronary artery, unspecified vessel or lesion type, unspecified whether angina present, unspecified whether [place] or transplanted heart; Cardiomyopathy, unspecified type (Multi); White coat syndrome with hypertension; Hyperlipidemia, unspecified hyperlipidemia type; Status post coronary angioplasty; BMI 25.0-25.9,adult; Atherosclerotic heart disease of [place] coronary artery without angina pectoris Start: 11-27-2022 End: 84-45-7993kgdvgmvrzpRsbryqjm [place] Other [place] [employer] Other Start: 91-16-8555Qbanclzhf for general adult medical examination without abnormal findingsWadley Regional Medical Centertart: 64-10-1628Mjycxfzs preventive med est patient 65yrs& olderKenny Chirinos [facility] ClinicStart: 24-27-1206Qjcaie outpatient visit 25 minutesBetabatha Fitzpatrick Work Phone: [phone]-Mxqef [facility] DO Work Phone: Start: 64-13-5750dbvswlzrjfPr. Kenny Fitzpatrick Facility:[id number]: 55-16-3476Vp RenewalKenny Fitzpatrick Work Phone: [phone]-Mknmo [facility] DO Work Phone: Start: 11-26-2021 End: 13-93-2710xnyxtsxpkkDT KENNY FITZPATRICKFacility:D2Eisud: 27-96-4490Xefjr health examinationBetabatha Fitzpatrick Other [place] [employer] Other Start: 73-65-6248FOV, Provider: Dagoberto Monk, Status: Pen, Time: 8:30 Severo Monk MD Work Phone: [phone]-Bdees [facility] DO Work Phone: Start: 69-64-0877Ev Sarah Monk MD Work Phone: [phone]-Omrwi [facility] DO Work Phone: Start: 70-09-8719Ck Sarah Monk MD Work Phone: [phone]-Cbvis [facility] DO Work Phone: Start: 01-06-6152Bl Sarah Monk MD Work Phone: [phone]-Vgjeq [facility] DO Work Phone: Start: 06-13-2017 End: 71-09-4566ihifmwicdiRAYZ NONEFacility:CD:[id number] Procedures DateProcedureProcedure DetailPerforming ClinicianStart: 32-55-3227DPP screening DR KENNY Gould on above:Performed By: #### PSASC #### [facility] [address] [place] [address] Dr. Unruly SinghStart: 11-22-2020 End: 39-52-6343Luwjpknhus screeningBenisauro Fitzpatrick Other Start: 08-24-9282Oxewn 1996 panel - Serum or Plasma Dagoberto Monk MD Work Phone: Start: 95-13-4544Tturn colonoscopyBenjamin E Amari Work Phone: Start: 11-18-2017 End: 48-64-5588Arszixh examination of patientBenjamin Amari Other Start: 43-70-0222Lwoysycsu for malignant neoplasm of colonBenjamin Ball Other Cardiac catheterizationBenjamin E Ball Work Phone: Screening for malignant neoplasm of prostateBenjamin Ball Other Total colonoscopyHakenrick Monk MD Work Phone: Plan of Treatment DateCare ActivityDetailAuthorStart: 52-72-2753NKsA/Tdap/Td Vaccines (2 - Tdap) DTaP/Tdap/Td Vaccines (2 - Tdap)[facility]Start: 11-01-2025 End: 97-67-1974Izestbf encounter dcmjnsheg13/30/2026 8:30 AM EDT Office Visit [address] [place] [address] Dagoberto Monk MD [address] [facility] [address] [place] [address] [facility]: 78-67-5474Bjhnc panelLipid PanelUnThe University of [facility]edo Medical CenterStart: 10-28-2024 End: 07-81-4387Wsmlxrfke aminotransferase [Enzymatic activity/volume] in Serum or Plasma by With P-5'-PAspartate Aminotransferase Lab Routine Atherosclerosis of coronary artery, unspecified vessel or lesion type, unspecified whether angina present, unspecified whether [place] or transplanted heart Expected: 10/28/2024 (Approximate), Expires: 10/28/2024UnThe [facility] of [facility] Center Work Phone: Comment on above:Expected: 10/28/2024 (Approximate), Expires: 10/28/2024Start: 10-28-2024 End: 54-88-3695Hakia metabolic 2000 panel - Serum or PlasmaBasic Metabolic Panel Lab Routine Atherosclerosis of coronary artery, unspecified vessel or lesion t ype, unspecified whether angina present, unspecified whether [place] or transplanted heart Cardiomyopathy, unspecified type (Multi) Expected: 10/28/2024 (Approximate), Expires: 10/28/2024UnThe [facility] Work Phone: Comment on above:Expected: 10/28/2024 (Approximate), Expires: 10/28/2024Start: 10-28-2024 End: 72-81-4877WGX panel - Blood by Automated countCBC Lab Routine Atherosclerosis of coronary artery, unspecified vessel or lesion type, unspecified whether angina present, unspecified whether [place] or transplanted heart Expected: 10/28/2024 (Approximate), Expires: 10/28/2024UnThe [facility] Work Phone: Comment on above:Expected: 10/28/2024 (Approximate), Expires: 10/28/2024Start: 10-28-2024 End: 55-07-6128Fgzqb 1996 panel - Serum or PlasmaLipid Panel Lab Routine Atherosclerosis of coronary artery, unspecified vessel or lesion type, unspe cified whether angina present, unspecified whether [place] or transplanted heart Expected: 10/28/2024 (Approximate), Expires: 10/28/2024UnThe [facility] Work Phone: Comment on above:Expected: 10/28/2024 (Approximate), Expires: 10/28/2024Start: 10-28-2024 End: 13-98-4207Ufwzzaj encounter sskjtzavj10/26/2025 8:40 AM EDT Office Visit [facility] [address] [place] [address] Dagoberto Monk MD [address] [place], [place] [id number] [facility] CenterStart: 20-01-1692IASVV-19 Vaccine ( season)COVID-19 Vaccine ( season)[facility] Start: 55-99-9177Wzkkfd Adult PhysicalYearly Adult PhysicalFort Hamilton HospitalStart: 10-29-2023 End: 02-75-4068Ltyerhb aminotransferase [Enzymatic activity/volume] in Serum or Plasma by With P-5'-PAlanine Aminotransferase Lab Routine Atherosclerosis of coronary artery, unspecified vessel or lesion type, unspecified whether angina present, unspecified whether [place] or transplanted heart Expected: 10/29/2023 (Approximate), Expires: 10/28/2024[facility] Service Area Work Phone: Comment on above:Expected: 10/29/2023 (Approximate), Expires: 10/28/2024Start: 09-51-2444MMC, Provider: Dagoberto Monk, Status: Pen, Time: 8:30 AMFUV, Provider: Dagoberto Monk, Status: Pen, Time: 8:30 AMKatherine [place] [address] DO Work Phone: Start: 49-91-1906RQDHD-19 Vaccine ( season) COVID-19 Vaccine ( season)[facility] HospitalStart: 77-61-0710MVN, Provider: Dagoberto Monk, Status: Pen, Time: 8:30 AMFUV, Provider: Dagoberto Monk, Status: Pen, Time: 8:30 AMMPBigfork Valley Hospital 250 DO Work Phone: Start: 90-60-7418PWU, Provider: Dagoberto Monk, Status: Pen, Time: 8:30 AMFUV, Provider: Dagoberto Monk, Status: Pen, Time: 8:30 AM-[facility] 250 DO Work Phone: Start: 72-57-5899Uwfdsq Vaccines (2 of 3)Zoster Vaccines (2 of 3)[facility]: 04-49-0550UCR High Risk: (Elderly (60+) or Population) (1 - Risk 60-74 years 1-dose series)RSV High Risk: (Elderly (60+) or Population) (1 - Risk 60-74 years 1-dose series)[facility]: 79-59-8572YLI patients and/or patients aged 60+ years (1 - 1-dose 60+ series)RSV patients and/or patients aged 60+ years (1 - 1-dose 60+ series) [facility]: 92-82-6512Ldfvbpqgs C screeningHepatitis C ScreeningOhioHealth Mansfield Hospitalart: 18-29-2005Efbayjchl for malignant neoplasm of colonOhioHealth Mansfield Hospitalart: 1950 Skin Cancer ScreeningSkin Cancer ScreeningFort [facility] Hospital Start: 07-76-1593Sphqyh Adult PhysicalYearly Adult PhysicalFort Hamilton HospitalComprehensive metabolic 1999 panel - Serum or PlasmaGalion Community HospitalComprehensive metabolic 1999 panel - Serum or Plasma [facility] Immunizations Immunization DateImmunizationNotesCare PxtkkqwiKjphslmj03-92-2406Cegbqbecu, Seasonal, Quadrivalent, AdjuvantedDagoberto Monk MD Work Phone: UnThe [facility] Work Phone: [phone] High-Dose Quadrivalent 0.7 ML Intramuscular Suspension Prefilled SyringeBenjamin E Ball Work Phone: [phone]-IteodEssentia HealthTrenton 250 DO Work Phone: [phone]) [phone]ignuj virus vaccine, unspecified formulationGalion Community Hospital09-17-2022influenza, high dose seasonal, preservative-freeBenjamin Ball Other NoNorrist[facility] [employer] Other 12557397-10-4687Uqquje-IlePVjof COVID-19 Vacc 30 MCG/0.3ML Intramuscular SuspensionBencosmemin Philomena Fitzpatrick Work Phone: [phone]-EtllvDaniel [place] [address] DO Work Phone: [phone] High-Dose Quadrivalent 0.7 ML Intramuscular Suspension Prefilled SyringeBenisauro Fitzpatrick Work Phone: [phone]-BdfxtDaniel [place] [address] DO Work Phone: [phone]e, tetanus toxoids and acellular pertussis vaccine, unspecified formulationBenisauro Fitzpatrick Other [facility]05-22-2021Janssen COVID-19 Vaccine 0.5 ML Intramuscular SuspensionDagoberto Monk MD Work Phone: [facility]10-01-2020influenza virus vaccine, unspecified formulationDagoberto Monk MD Work Phone: [phone]-WcbnhDaniel [place] [address] DO Work Phone: [phone]) [phone]vmgtih virus vaccine, split virus (incl. purified surface antigen)Kenny Fitzpatrick Other noNorristown State Hospital [employer] Other [phone] virus vaccine, unspecified formulationGalion Community Hospital09-18-2019Seasonal trivalent influenza vaccine, adjuvanted, preservative freeBenjamin Philomena Fitzpatrick Work Phone: [phone]-ExfgqDaniel [place] [address] DO Work Phone: [phone] [phone]xuadr virus vaccine, unspecified formulationDagoberto Monk MD Work Phone: [phone]-ManngDaniel [place] [address] DO Work Phone: [phone]) [phone]qzjts, high dose seasonal, preservative-freeBenjamin E Ball Work Phone: [phone]-GxqziDaniel [place] [address] DO Work Phone: [phone]wyivg virus vaccine, unspecified formulationDagoberto Monk MD Work Phone: [phone]-KagukDaniel [place] [address] DO Work Phone: [phone]) [phone]qrfittqwkgg polysaccharide vaccine, 23 valentBenjamin E Ball Work Phone: [facility]09-01-2017influenza virus vaccine, unspecified formulationDagoberto Monk MD Work Phone: [phone]-RxybsDaniel [place] [address] DO Work Phone: [phone]) 250-619208266420-08-6557uckttkxgy, high dose seasonal, preservative-freeDagoberto Monk MD Work Phone: [facility] Work Phone: [phone]) 168-266811846539-55-8867neptcsdvnfzq conjugate vaccine, 13 valent Dagoberto Monk MD Work Phone: [phone]-IdkmdDaniel [place] [address] DO Work Phone: [phone]) [phone]ohqgppva virus vaccine, split virus (incl. purified surface antigen)Kenny Fitzpatrick Other [place] [employer] Other 10753001-92-5018atffzufch virus vaccine, unspecified formulationGalion [facility] Hospital10-01-2016influenza virus vaccine, unspecified formulationDagoberto Monk MD Work Phone: [phone]-ZasioDaniel [place] [address] DO Work Phone: [phone] 398-731510286357-07-5710kkagnziun, high dose seasonal, preservative-freeDagoberto Monk MD Work Phone: [facility] Work Phone: 1(447) 354-287807-997911-48-3531lcjamfmbbyhk conjugate vaccine, 13 valent Kenny Fitzpatrick Other [facility]09-01-2015influenza virus vaccine, unspecified formulationDagoberto Monk MD Work Phone: [phone]-OsdtfBigfork Valley Hospital 250 DO Work Phone: [phone]) [phone]aumitazz virus vaccine, unspecified formulationDagoberto Monk MD Work Phone: [phone]-LvwbbBigfork Valley Hospital 250 DO Work Phone: [phone]) [phone]jwjvh vaccine, liveDagoberto Monk MD Work Phone: [phone]-OkzgjBigfork Valley Hospital 250 DO Work Phone: [phone]) [phone]skjdy, seasonal, injectableBenjamin E Amari Work Phone: [phone]-KrujmBigfork Valley Hospital 250 DO Work Phone: [phone]) 768-374410216347-90-9767kosphuheymhy polysaccharide vaccine, 23 Faustino Monk MD Work Phone: [phone]-JamlsBigfork Valley Hospital 250 DO Work Phone: influenza virus vaccine, unspecified formulationDagoberto Monk MD Work Phone: [phone]-QksqfBigfork Valley Hospital 250 DO Work Phone: Comment on above:[id number] Payers DatePayer CategoryPayerPolicy [id number] Care (Private)[facility] [id number] Health InsuranceCIJayson [employer] PLAN [id number] 2019-Present [address] [place] [id number] RakeZULMA [id number] Gytv-[id number] Health [id number] [id number] 2.16.840.1.271473.3.57[id number] 2.16.840.1.023405.3.57[id number] 2.16.840.1.175[id number] [id number] Health [id number] Social History DateTypeDetailFacilityStart: 77-48-2478Vqsegdba useCaffeine useKlickitat Valley [facility] DO Work Phone: Comment on above:soda occasionally;Start: 10-29-2023 Sex Assigned At [facility] [employer] Other Start: 10-29-2023 End: 44-68-7051Aaswvol smoking status NHISNever smoked tobacco (finding) [facility]: 26-46-0590Jxz [facility]tart: 74-20-9670Nqwtlnn use and exposure Smokeless tobacco non-userFort Hamilton Hospital Work Phone: Start: 10-29-2023 End: 51-29-5771Sarfepngq beverage intakeLifetime non-drinker (finding)[facility] Work Phone: Start: 79-79-8233Owb assigned at birthNot on file [facility] Work Phone: Start: 10-19-2023 End: 01-11-3326Twtdogzr to SARS-CoV-2 (event)Not sureFort Hamilton HospitalSexMale (finding)[facility] Clinical Notes 11-27-2022 to 10-28-2024 Note Date & ZmqbZekxRhelsgig68-13-7903 History of Present illness Narrative* Dagoberto Monk MD - 10/28/2024 8:40 AM EDT HPI Patient is in the office for annual follow-up for CAD and previous angioplasty involving the LAD 20years ago. He has essential hypertension on multiple medications which has been controlled at home,he has hyperlipidemia on statin therapy under excellent control based on testing he has annually. He continue to work with the [employer] and his work is physically demanding but [...] mg, sublingual, Every 5 min PRN omega 0-vyy-apj-fish oil (Fish OiL) 300-1,000 mg capsule,delayed release(DR/EC) 1 capsule, Daily Assessment/Plan 1. Atherosclerosis of coronary artery, unspecified vessel or lesion type, unspecified whether angina present, unspecified whether [place] or transplanted heart Follow Up In Cardiology Follow Up In Cardiology nitroglycerin (Nitrostat) 0.4 mg SL tablet 2. Status post coronary angioplasty 3. White coat syndrome with hypertension 4. Mixed hyperlipidemia 5. BMI 24.0-24.9, adult 6. Never smoked tobacco Scribe Attestation By signing my name below, I Jocelyn GarzaAna HIDALGO , Scribe attest that this documentation has been prepared under the direction and in the presence of Dagoberto Monk MD. Provider Attestation - Scribe documentation All medical record entries made by the Scribe were at my direction and personally dictated by me. Ihave reviewed the chart and agree that the record accurately reflects my personal performance of the history, physical exam, discussion and plan. documented in this encounterFort Hamilton Hospital Work Phone: 1(401) 453-948006-26-2025 Instructions* Patient Instructions* Des Saab MA - 10/28/2024 8:40 AM [...] time of your visit. documented in this encounterFort Hamilton Hospital Work Phone: 1(593) 293-714706-26-2024 History of Present illness Narrative* Dagoberto Monk MD - 10/29/2023 8:30 AM EDT Subjective Stephanie Austin is a 73 y.o. male Chief Complaint Annual Exam HPI Patient is in the office for annual follow-up for coronary artery disease, hypertension and hyperlipidemia. He has not had any events since he was last seen in the office last year. He works at [employer] and his job is physically demanding without any problems for him. We have not received his blood work from the last 2 years. We will request that again from [facility]. His medication reviewed, they have been very effective and well- tolerated. We renewed nitroglycerin sublingual. His pressure is always elevated in the office and he is known to have whitecoat hypertension. His blood pressure otherwise in other places have always been normal. Therefore I did not want to makeany adjustment of his medications. He is not [...] me in 1 year Dagoberto Monk MD, FACC Review of Systems All other systems reviewed [...] mouth once daily., Disp: , Rfl: omega 4-jtc-rcp-fish oil (Fish OiL) 300-1,000 mg capsule,delayed release(DR/EC), [...] by mouth once daily., Disp: 90 tablet, Rfl:3 nitroglycerin (Nitrostat) 0.4 mg SL tablet, Place 1 tablet (0.4 mg) under the tongue every 5 minutes if needed for chest pain ([facility] or call 911 after third dose.)., Disp: 25 tablet, Rfl:11 Assessment/Plan 1. Atherosclerosis of coronary artery, unspecified vessel or lesion type, unspecified whether angina present, unspecified whether [place] or transplanted heart Follow Up In Cardiology [...] BMI 25.0-25.9,adult 7. Atherosclerotic heart disease of [place] coronary artery without angina pectoris aspirin 81 mg ECtablet Scribe Attestation By signing my name below, I, Brenda Shetty LPN, Scribe attest that this documentation has been prepared under the direction and in the presence of Dagoberto Monk MD. Provider Attestation - Scribe documentation All medical record entries made by the Scribe were at my direction and personally dictated by me. Ihave reviewed the chart and agree that the record accurately reflects my personal performance of the history, physical exam, discussion and plan. documented in this encounterFort Hamilton Hospital Work Phone: 1(168) 594-887706-26-2024 Instructions* Patient Instructions* Brenda Kessler LPN - 10/29/2023 8:30 AM EDT [...] one year Same medications. documented in this encounterFort Hamilton Hospital Work Phone: 1(645) 598-481307-26-2023 Evaluation note* Encounter Date Diagnosis Assessment Notes Treatment Notes Treatment Clinical Notes Nov, ASHD (arteriosclerotic heart dis ease) (ICD-10 - I25.10) This patient is stable without activity related CP, dyspnea or lightheadedness. They are instructedto continue exercise and AHA diet plan. Nov,Wellness examination (ICD-10 - Z00.00)Healthy diet and exercise. Reviewed age-appropriate preventive testing recommended. Nov,rimary hypertension (ICD-10 - I10)This patient is instructed to consume a healthy, low-fat, low-salt diet. They are also encouraged to continue exercise to achieve/maintain a normal BMI. Nov,Familial hypercholesterolemia (ICD-10 - E78.01)Diet and exercise w/ continued statin therapy. Recent increase w/ statin, recheck LDL, liver enzymes due per cardiology Instructed on diet and exercise with continued statin therapy.Discussed the beneficial effects of lowering cholesterol in reducing the risk for cerebrovascular and cardiovascular disease. Nov,Nocturia (ICD-10 - R35.1) Nov,enign prostatic hyperplasia with lower urinary tract symptoms (ICD- 10 - N40.1)Symptoms tolerable, yearly HERNESTO and PSA Nov,Screening PSA (prostate specific antigen) (ICD-10 - Z12.5) Nov,OtherPersonalized health advice was given to the beneficiary including a written plan for screenings discussed and provided. Advanced care planning reviewed and/or information given as requested. Additional counseling was provided here today in regards to, [ ]. The above visit was performed by [ ], under direct supervision of [ ]. Document reviewed and amended by provider signed below. [facility] Other Evaluation note* Diagnosis Onset Date Resolution Status ASHD (arteriosclerotic heart disease) acuteBenign prostatic hyperplasia with lower urinary tract symptomsacute HypercholesterolemiaacuteHypertensionacuteScreening PSA (prostate specific antigen)noneactiveWellness examinationnoneactive [facility] Work Phone: Evaluation note* Diagnosis Atherosclerosis of coronary artery, unspecified vessel or lesion type, unspecified whether angina present, unspecified whether [place] or transplanted heart Cardiomyopathy, unspecified type (Multi) White coat syndrome with hypertension Hyperlipidemia, unspecified hyperlipidemia type Status post coronary angioplasty Postsurgical percutaneous transluminal coronary angioplasty status BMI 25.0-25.9,adult documented in this encounter [facility] Work Phone: Evaluation note* Diagnosis Atherosclerosis of coronary artery, unspecified vessel or lesion type, unspecified whether angina present, unspecified whether [place] or transplanted heart- Primary Status post coronary angioplasty Postsurgical percutaneous transluminal coronary angioplasty status White coat syndrome with hypertension Left ventricular systolic dysfunction Mixed hyperlipidemia BMI 24.0-24.9, adult Never smoked tobacco documented in this encounter [facility] Work Phone: Evaluation note* Diagnosis Onset Date Resolution Status Admit Date ASHD (arteriosclerotic heart disease) acuteJuly 2024 8:15amBenign prostatic hyperplasia with lower urinary tract symptomsacuteJuly 2024 8:15amHypercholesterolemiaacuteJuly 2024 8:15amHypertensionacuteJuly 2024 8:15amScreening PSA (prostate specific antigen)noneactiveJuly 2024 8:15amWellness examinationnoneactiveJuly 2024 8:15am [facility] Work Phone: History general Narrative - Reported* Type Description Date Medical History Essential (primary) hypertension Medical HistoryHyperlipidemia, unspecifiedMedical HistoryFamilial hypercholesterolemiaMedical HistoryASHD (arteriosclerotic heart disease)Medical HistoryBenign prostatic hyperplasia with lower urinary tract symptomsSurgical [id number] HistoryPERCUTANEOUS INTERVENTION (PCI) WITH INSERTION OF STENT INTO LEFT ANTERIOR DESCENDING (LAD) CORONARY [id number] Hospitalization HistorySEE SURGICAL [facility] [employer] Other Reason for referral (narrative)* Consultation (Routine) - AuthorizedSpecialtyDiagnoses / ProceduresReferred By Contact Referred To ContactCardiology Diagnoses Atherosclerosis of coronary artery, unspecified vessel or lesion type, unspecified whether angina present, unspecified whether [place] or transplanted heart Procedures Follow Up In Cardiology Dagoberto Monk MD [address] [facility] [address], [address] [address] Dagoberto Monk MD [address] [facility] 2, [address] [place] [address] Referral IDStatusReasonStart DateExpiration DateVisits RequestedVisits [id number]/26/20246/ [facility] Work Phone: Reason for referral (narrative)No reason for referral information availableSalem City Hospital Work Phone: Summary Purpose Family History Relationship Condition Age at Onset Recorded Date/T violet father Malignant neoplasm Unknown motherMalignant neoplasmUnknownNo Family History Records Found Advance Directives Advance [...] years. He checks his blood pressure michelle kyler on a weekly basis and his systolic pressure never exceeded 140 mmHg, his annual blood work isdue next month and the last years readings were on target. His weight is on target his review of system was done in normal physical examination was entirely normal. He was never smoker. His job is physically demanding at [employer] and he has no plans for [facility] soon. * ASSESSMENT AND PLAN: * 1. [...] in 1 year * [facility] Chief Complaint and Reason for Visit Chief [...] section and content) DATE CREATED AUTHOR 12/02/[address] [facility] DATE CREATED AUTHOR AUTHOR'S ORGANIZ ATION 07/01/2022 [facility] DATE CREATED AUTHOR AUTHOR'S ORGANIZ ATION 10/23/2022 [facility] DATE CREATED AUTHOR AUTHOR'S ORGANIZ ATION 03/15/2023 [facility] DATE CREATED AUTHOR AUTHOR'S ORGANIZ ATION 10/29/2024 [facility] REASON FOR VISIT (unrecogniz ed section and content) ReasonCommentsAnnual ExamReasonCommentsFollow-up1 year, coronary artery disease SpecialtyDiagnoses / ProceduresReferred By ContactReferred To ContactCardiology Diagnoses Atherosclerosis of coronary artery, unspecified vessel or lesion type, unspecified whether angina present, unspecified whether [place] or transplanted heart Procedures Follow Up In Cardiology Dagoberto Monk MD [address] [place] [id number] Phone: tel: fax: Dagoberto Monk MD [address] [place] [address] Phone: tel: fax: Referral IDStatusReasonStart DateExpiration DateVisits RequestedVisits [id number]/26/20246/ Care Teams (unrecognized sec tion and content) Team Status: Active Member Role Status Dates Kenny Fitzpatrick DO Primary Care Provider Active Team Status: Inactive Member Role Status Dates Kenny Fitzpatrick DO Primary Care Provide r, Attending Provider Active Start: December 01, 2023 End: December 01, 2023Team MemberRelationshipSpecialtyStart DateEnd Date Kenny Fitzpatrick DO PCP - General05/05/99Team MemberRelationshipSpecialtyStart DateEnd Date Kenny Fitzpatrick [place] [address] PCP - [facility]10/14/24 Team Status: Inactive Member Role Status Dates Kenny Fitzpatrick DO Primary Care Provider Active Start: December 01, 2024 End: December 01enjamuna Fitzpatrick DOAttending ProviderActiveStart: December 01, 2024 End: December 01, 2024 [...] BE BASED ON THE PRIMARY CLINICAL RECORDS. [facility] [facility] provides no warranty or guarantee of the accuracy or completeness of information in this document.
[2025-03-10 11:26] LABS: Hematocrit 40.1 % (42.0-54.0); Hemoglobin 13.5 g/dL (14.0-18.0); Immature Granulocytes Abs Auto 0.02 10^3/uL (0.00-0.03); Immature Granulocytes Pct Auto 0.2 % (0.0-0.5); Lymphocytes Absolute Auto 2.2 10^3/uL (1.2-3.8); Mean Corpuscular HGB Conc 33.7 g/dL (29.9-35.2); Mean Corpuscular Hemoglobin 31.3 pg (25.9-34.0); Mean Corpuscular Volume 92.8 fL (80.0-94.0); Platelet Count 173 10^3/uL (150-450); Red Blood Count 4.32 10^6/uL (4.70-6.10); White Blood Count 10.0 10^3/uL (4.0-11.0)
[2025-03-10 12:41] LABS: Ferritin 153.0 ng/mL (26.0-388.0); Folate 37.30 ng/mL (8.60-58.90)
[2025-03-11 07:08] LABS: Vitamin B12 1055 pg/mL (232-1245)
== END 2025-03-10 11:06 | disposition home or self-care (01) ==
PROVIDERS: PCP Internal Medicine; Visit Provider Internal Medicine
DX: D64.9 Anemia, unspecified (principal)
CPT/HCPCS: 36415; 82607; 82728; 82746; 85025